=== PATIENT | female | born 1980 | race American Indian/Alaskan Native ===

== ENCOUNTER 2019-11-21 15:55 | Emergency (ER) | payer MEDICAID, OTHER ==
[~2019-11-21 15:55] MED LIST: HYDROmorphone 1 MG/ML Syringe IVPUSH ONE; Lactated Ringers 1,000 ML IV ONE; Ondansetron 4 MG/2 ML SDV IV ONE
[2019-11-21] MEDS ORDERED: Propofol 200 MG/20 ML SDV IV ONE (15:56)
[2019-11-21 15:58] VITALS: BP 114/67; PULSE 88
[2019-11-21 16:33] LABS: ANION GAP 14.1; CHLORIDE,CL 94 mmol/L (101-111); SODIUM,NA 129 mmol/L (135-145)
[2019-11-21] MEDS ORDERED: HYDROmorphone 1 MG/ML Syringe IVPUSH ONE ×4 (16:54→20:42)
[2019-11-21] MEDS ORDERED: cefTRIAXone 2 GM in Sodium Chloride 0.9% 100 ML IV ONE (17:28)
[2019-11-21] MEDS ORDERED: Lidocaine 1% 30 ML SDV ONE (17:50)
[2019-11-21] MEDS ORDERED: Lidocaine 1% 30 ML SDV INJECT ONE (17:52)
--- NOTE | 2019-11-21 18:49 | EDM.PDOC ---
<InaDmitri Lior - Last Filed: 11/22/19 08:37> ED HPI GENERAL MEDICAL PROBLEM - General Chief Complaint: Abdominal Pain Stated Complaint: UNKNOWN-AMBULANCE Time Seen by Provider: 11/21/19 16:00 - History of Present Illness INITIAL COMMENTS - FREE TEXT/NARRATIVE: Francois is a 39-year-old woman who presents by ambulance with severe abdominal pain. She states that 2 days ago, she started developing what she thought were inflamed lymph nodes in her groin by her labia. She states that 1 of these is now involving her right labia, and is very swollen. She states that today, the pain in those areas is not as bad, but now the pain is moved up into her abdomen , quite severe. She has had no appetite today. She reports to me that she still believes that she has an IUD in place, and that she has had [address] Stating that she would like this removed. She reports fevers and chills with this. Of note, Francois also reports to us medical conditions which are poorly controlled. She states that she has diabetes type 2, but does not take any kind of medications for this and does not check her blood sugar. She also reports current usage of IV drugs, including oxycodone which she injects. Abdomen Pain Score (Numeric/FACES): 10 - Related Data Allergies Allergy/AdvReac Type Severity Reaction Status Date / Time insulin detemir Allergy Hives Verified 11/21/19 15:59 [From Levemir U-100 Insulin] ketorolac [From Toradol] Allergy Hives Verified 11/21/19 15:59 piperacillin [From Zosyn] Allergy Hives Verified 11/21/19 15:59 tazobactam [From Zosyn] Allergy Hives Verified 11/21/19 15:59 vancomycin Allergy Hives Verified 11/21/19 15:59 Home Meds: Home Meds Vit No.130/Iron/Folic [ Vitamins] 1 tab PO DAILY 11/20/15 [ History] Acetaminophen/HYDROcodone [[place] 325-10 MG] 1 tab PO TID PRN #20 tablet [Rx] Docusate Sodium [Colace] 100 mg PO BID #60 cap 11/21/15 [Rx] Ferrous Sulfate [Iron] 325 mg PO BID 30 Days tablet 11/21/15 [Rx] Ibuprofen [Motrin] 800 mg PO Q8H PRN #30 tablet 11/21/15 [Rx] Past Medical History - Past Health History Medical/Surgical History: Denies Medical/Surgical History HEENT History: Reports: None Cardiovascular History: Reports: None Respiratory History: Reports: None Gastrointestinal History: Reports: None 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: , 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 Endocrine/Metabolic History: Reports: Diabetes, Type II - Infectious Disease History Infectious Disease History: Reports: MRSA - Past Surgical History Female Surgical History: Reports: Ureteral Stent Social & Family History - Family History Family Medical History: Noncontributory - Tobacco Use Smoking Status *Q: Never Smoker Second Hand Smoke Exposure: No - Caffeine Use Caffeine Use: Reports: None - Recreational Drug Use Recreational Drug Use: Yes Drug Use in Last 12 Months: Yes Recreational Drug Type: Reports: Oxycodone Recreational Drug Use Frequency: Weekly ED ROS GENERAL - Review of Systems Review Of Systems: Comprehensive ROS is negative, except as noted in HPI. ED EXAM, GI/ABD - Physical Exam Exam: See Below Text/Narrative:: General: Francois is a 39-year-old woman who is in severe pain, but in no other acute distress. She is showing no signs of respiratory distress, no tachypnea or accessory muscle use Oropharynx is clear, mucous membranes are moist Heart: Regular rate and rhythm, no murmurs Lungs: Clear to auscultation throughout Abdomen: She is diffusely tender throughout but especially around her suprapubic area I was able to get an initial exam of her genitourinary area including her labia. She does have a very enlarged right labia, as well as a large cyst just inferior to her right labia. I do palpate some lymph nodes in her inguinal area as well As Francois was having so much pain that on exam was difficult, and with the fact that she states that she would like her IUD removed, with the fact that she has clinical signs and symptoms of pelvic inflammatory disease, she consented to having her IUD removed under sedation. We will also do an exam under sedation of her labial area to see if an I&D can be performed. Anesthesia was called and consented her for moderate sedation Moderate sedation was achieved using propofol Exam was then performed: The swelling over her right labia appears to have a small area that was already draining. The cyst inferior to this had lidocaine applied, and a small incision was made using a #11 scalpel. A large amount of exudative drainage was then expressed from the wound. Speculum was inserted, and immediately noted to be a large amount of purulent drainage in the vaginal vault as well as surrounding the cervix. There appear to also be exudate coming from the cervical os itself. No IUD strings are visualized. Course - Vital Signs Last Recorded V/S: Last Vital Signs Temp 96.7 F 11/21/19 15:55 Pulse 88 11/21/19 15:55 Resp 22 H 11/21/19 15:55 BP 114/67 11/21/19 15:55 Pulse Ox 99 11/21/19 15:55 - Orders/Labs/Meds Labs: Laboratory Tests 11/21/19 11/21/19 11/21/19 Range/Units 16:01 16:07 16:07 WBC 9.7 (5.0-10.0) 10^3/uL RBC 5.06 (4.2-5.4) 10^6/uL Hgb 14.4 D (12.0-16.0) g/dL Hct 41.5 (37.0-47.0) % MCV 82.0 D (80-100) fL MCH 28.5 (27.0-34.0) pg MCHC 34.7 (33.0-35.0) g/dL Plt Count 260 D (150-450) 10^3/uL Neut % (Auto) 71.8 (42.2-75.2) % Lymph % (Auto) 22.4 (20.5-50.1) % [place] % (Auto) 5.7 (2-8) % Eos % (Auto) 0.0 L (1.0-3.0) % Baso % (Auto) 0.1 (0.0-1.0) % Sodium 129 L (135-145) mmol/L Potassium 4.1 (3.6-5.0) mmol/L Chloride 94 L (101-111) mmol/L Carbon Dioxide 25.0 (21.0-31.0) mmol/L Anion Gap 14.1 BUN 12 (7-18) mg/dL Creatinine 0.7 (0.6-1.3) mg/dL Est Cr Clr Drug Dosing 103.89 mL/min Estimated GFR (MDRD) > 60 BUN/Creatinine Ratio 17.14 Glucose 420 H* (74-105) mg/dL POC Glucose (70-105) mg/dl Lactic Acid (0.5-2.0) mmol/L Calcium 8.9 (8.4-10.2) mg/dl Total Bilirubin 1.0 (0.2-1.0) mg/dL AST 40 (10-42) IU/L ALT 36 (10-60) IU/L Alkaline Phosphatase 130 H (42-121) IU/L Total Protein 8.8 H (6.7-8.2) g/dl Albumin 3.7 (3.2-5.5) g/dl Globulin 5.1 Albumin/Globulin Ratio 0.73 HCG, Qual Negative Urine Color (YELLOW) Urine Appearance (CLEAR) Urine pH (5.0-9.0) Ur Specific [place] (1.005-1.030) Urine Protein (NEGATIVE) Urine Glucose (UA) (NEGATIVE) Urine Ketones (NEGATIVE) Urine Occult Blood (NEGATIVE) Urine Nitrite (NEGATIVE) Urine Bilirubin (NEGATIVE) Urine Urobilinogen (0.2-1.0) mg/dL Ur Leukocyte Esterase (NEGATIVE) Urine RBC /HPF Urine WBC (0-5/HPF) /HPF Ur Epithelial Cells (NOT SEEN) /HPF Urine Bacteria (0-FEW/HPF) /HPF Urine Yeast (NOT SEEN) /HPF 11/21/19 11/21/19 11/21/19 Range/Units 16:07 16:53 20:01 WBC (5.0-10.0) 10^3/uL RBC (4.2-5.4) 10^6/uL Hgb (12.0-16.0) g/dL Hct (37.0-47.0) % MCV (80-100) fL MCH (27.0-34.0) pg MCHC (33.0-35.0) g/dL Plt Count (150-450) 10^3/uL Neut % (Auto) (42.2-75.2) % Lymph % (Auto) (20.5-50.1) % [place] % (Auto) (2-8) % Eos % (Auto) (1.0-3.0) % Baso % (Auto) (0.0-1.0) % Sodium (135-145) mmol/L Potassium (3.6-5.0) mmol/L Chloride (101-111) mmol/L Carbon Dioxide (21.0-31.0) mmol/L Anion Gap BUN (7-18) mg/dL Creatinine (0.6-1.3) mg/dL Est Cr Clr Drug Dosing mL/min Estimated GFR (MDRD) BUN/Creatinine Ratio Glucose (74-105) mg/dL POC Glucose 264 H (70-105) mg/dl Lactic Acid 1.2 (0.5-2.0) mmol/L Calcium (8.4-10.2) mg/dl Total Bilirubin (0.2-1.0) mg/dL AST (10-42) IU/L ALT (10-60) IU/L Alkaline Phosphatase (42-121) IU/L Total Protein (6.7-8.2) g/dl Albumin (3.2-5.5) g/dl Globulin Albumin/Globulin Ratio HCG, Qual Urine Color Dark yellow (YELLOW) Urine Appearance Cloudy (CLEAR) Urine pH 7.0 (5.0-9.0) Ur Specific [place] 1.020 (1.005-1.030) Urine Protein 30 H (NEGATIVE) Urine Glucose (UA) 500 H (NEGATIVE) Urine Ketones Negative (NEGATIVE) Urine Occult Blood Large H (NEGATIVE) Urine Nitrite Negative (NEGATIVE) Urine Bilirubin Negative (NEGATIVE) Urine Urobilinogen 1.0 (0.2-1.0) mg/dL Ur Leukocyte Esterase Negative (NEGATIVE) Urine RBC 40-50 H /HPF Urine WBC 0-5 (0-5/HPF) /HPF Ur Epithelial Cells Many H (NOT SEEN) /HPF Urine Bacteria Rare (0-FEW/HPF) /HPF Urine Yeast Few H (NOT SEEN) /HPF 11/21/19 Range/Units 20:39 WBC (5.0-10.0) 10^3/uL RBC (4.2-5.4) 10^6/uL Hgb (12.0-16.0) g/dL Hct (37.0-47.0) % MCV (80-100) fL MCH (27.0-34.0) pg MCHC (33.0-35.0) g/dL Plt Count (150-450) 10^3/uL Neut % (Auto) (42.2-75.2) % Lymph % (Auto) (20.5-50.1) % [place] % (Auto) (2-8) % Eos % (Auto) (1.0-3.0) % Baso % (Auto) (0.0-1.0) % Sodium (135-145) mmol/L Potassium (3.6-5.0) mmol/L Chloride (101-111) mmol/L Carbon Dioxide (21.0-31.0) mmol/L Anion Gap BUN (7-18) mg/dL Creatinine (0.6-1.3) mg/dL Est Cr Clr Drug Dosing mL/min Estimated GFR (MDRD) BUN/Creatinine Ratio Glucose (74-105) mg/dL POC Glucose 253 H (70-105) mg/dl Lactic Acid (0.5-2.0) mmol/L Calcium (8.4-10.2) mg/dl Total Bilirubin (0.2-1.0) mg/dL AST (10-42) IU/L ALT (10-60) IU/L Alkaline Phosphatase (42-121) IU/L Total Protein (6.7-8.2) g/dl Albumin (3.2-5.5) g/dl Globulin Albumin/Globulin Ratio HCG, Qual Urine Color (YELLOW) Urine Appearance (CLEAR) Urine pH (5.0-9.0) Ur Specific [place] (1.005-1.030) Urine Protein (NEGATIVE) Urine Glucose (UA) (NEGATIVE) Urine Ketones (NEGATIVE) Urine Occult Blood (NEGATIVE) Urine Nitrite (NEGATIVE) Urine Bilirubin (NEGATIVE) Urine Urobilinogen (0.2-1.0) mg/dL Ur Leukocyte Esterase (NEGATIVE) Urine RBC /HPF Urine WBC (0-5/HPF) /HPF Ur Epithelial Cells (NOT SEEN) /HPF Urine Bacteria (0-FEW/HPF) /HPF Urine Yeast (NOT SEEN) /HPF Meds: Medications Discontinued Medications Generic Name Dose Route Start Last Admin Trade Name Freq PRN Reason Stop Dose Admin Hydromorphone HCl 1 mg 11/21/19 15:54 11/21/19 16:14 Dilaudid IVPUSH 11/21/19 15:55 1 mg ONETIME ONE Administration Hydromorphone HCl 0.5 mg 11/21/19 16:54 11/21/19 17:06 Dilaudid IVPUSH 11/21/19 16:55 0.5 mg ONETIME ONE Administration Hydromorphone HCl 0.5 mg 11/21/19 18:36 11/21/19 18:45 Dilaudid IVPUSH 11/21/19 18:37 0.5 mg ONETIME ONE Administration Hydromorphone HCl 1 mg 11/21/19 19:48 11/21/19 20:02 Dilaudid IVPUSH 11/21/19 19:49 1 mg ONETIME ONE Administration Hydromorphone HCl 0.5 mg 11/21/19 20:42 11/21/19 21:08 Dilaudid IVPUSH 11/21/19 20:43 0.5 mg ONETIME ONE Administration Lactated Ringer's 1,000 mls @ 999 mls/hr 11/21/19 15:54 11/21/19 17:17 Ringers, Lactated IV 11/21/19 16:54 Infused .BOLUS ONE Infusion Ceftriaxone Sodium 2 gm/ 100 mls @ 200 mls/hr 11/21/19 17:28 11/21/19 18:26 Sodium Chloride IV 11/21/19 17:57 200 mls/hr ONETIME ONE Administration Insulin Human Regular 5 unit 11/21/19 19:37 11/21/19 19:57 Humulin R IV 11/21/19 19:38 5 units ONETIME ONE Administration Iopamidol 100 ml 11/21/19 19:10 11/21/19 20:15 Isovue-300 (61%) IVPUSH 11/21/19 19:11 75 ml ONETIME ONE Administration Lidocaine HCl 30 ml 11/21/19 17:52 11/21/19 18:00 Xylocaine-Mpf 1% INJECT 11/21/19 17:53 30 ml ONETIME ONE Administration Lidocaine HCl Confirm 11/21/19 17:50 11/21/19 18:14 Xylocaine-Mpf 1% Administered 11/21/19 17:51 Not Given Dose 30 ml .ROUTE .STK-MED ONE Ondansetron HCl 4 mg 11/21/19 15:54 11/21/19 16:14 Zofran IV 11/21/19 15:55 4 mg ONETIME ONE Administration Propofol 250 mg 11/21/19 15:56 Diprivan 20 Ml IV 11/21/19 15:57 .STK-MED ONE Departure - Departure Time of Disposition: 20:55 Disposition: DC/Tfer to Acute Hospital 02 Clinical Impression: Cyst, Abdominal pain - Discharge Information *PRESCRIPTION DRUG MONITORING PROGRAM REVIEWED*: Not Applicable *COPY OF PRESCRIPTION DRUG MONITORING REPORT IN PATIENT DORYS: Not Applicable Referrals: PCP,Unknown [Ordering Only Provider] - Forms: ED Department Discharge Sepsis Event Note - Evaluation Sepsis Screening Result: Possible Sepsis Risk - Focused Exam Date Exam was Performed: 11/22/19 Time Exam was Performed: 08:37 - Problem List & Annotations (1) Pelvic inflammatory disease SNOMED Code(s): 728641427 Code(s): N73.9 - FEMALE PELVIC INFLAMMATORY DISEASE, UNSPECIFIED Status: Acute (2) Cyst SNOMED Code(s): 953445519 Code(s): WXF3773 - Status: Acute Annotation/Comment:: status post I&D - Problem List Review Problem List Initiated/Reviewed/Updated: Yes <Myla Cespedes - Last Filed: 11/22/19 22:58> ED HPI GENERAL MEDICAL PROBLEM - General Source of Information: Reports: Patient History Limitations: Reports: No Limitations Course - Radiology Interpretation Free Text/Narrative:: Dr Suad Pal accepting patient. Tx via [facility]. Departure - Departure Condition: Good Sepsis Event Note - Focused Exam Date Exam was Performed: 11/22/19 Time Exam was Performed: 22:56
[2019-11-21] MEDS ORDERED: Iopamidol 612 MG/ML 100 ML Bottle IVPUSH ONE (19:10)
[2019-11-21] MEDS ORDERED: Insulin Regular, Human 100 Units/ML 3 ML Vial IV ONE (19:37)
== END 2019-11-21 21:15 ==
LOC: DL.ED 15:55
DX: N90.7 Vulvar cyst (principal); R10.9 Unspecified abdominal pain; E11.9 Type 2 diabetes mellitus without complications; Z88.8 Allergy status to other drugs, medicaments and biological substances; Z88.6 Allergy status to analgesic agent; Z88.1 Allergy status to other antibiotic agents
CPT/HCPCS: 36415; 56405; 58301; 74018; 74177; 80053; 81001; 82962; 83605; 84703; 85025; 87070; 87077; 87186; 87210; 87491; 87591; 96361; 96365; 96375; 96376; 99152; 99153; 99285; J0696; J1170; J1815; J2001; J2405; J2704; J7050; J7120; Q9967

== ENCOUNTER 2021-01-22 00:10 | Emergency (ER) | payer MEDICAID ==
[2021-01-22 00:20] VITALS: BP 103/81; PULSE 129
[2021-01-22] MEDS ORDERED: Ondansetron 4 MG/2 ML SDV IVPUSH ONE (00:35)
[2021-01-22] MEDS ORDERED: fentaNYL 100 MCG/2 ML SDV IVPUSH ONE (00:35)
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
[2021-01-22 01:05] LABS: ANION GAP 15.7 mEq/L (7-13); CHLORIDE,CL 102 mmol/L (98-107); SODIUM,NA 140 mmol/L (136-145)
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
== END 2021-01-22 02:30 | disposition home or self-care (01) ==
LOC: DL.ED 00:10
DX: S20.211A Contusion of right front wall of thorax, initial encounter (principal); E11.9 Type 2 diabetes mellitus without complications; Z88.0 Allergy status to penicillin; Z88.6 Allergy status to analgesic agent; Z88.8 Allergy status to other drugs, medicaments and biological substances; Z72.0 Tobacco use; Y04.2XXA Assault by strike against or bumped into by another person, initial encounter
CPT/HCPCS: 36415; 71111; 80053; 80305; 80307; 81001; 82150; 83690; 84703; 85025; 87086; 96374; 96375; 99283; J2405; J3010

== ENCOUNTER 2021-09-17 16:25 | Emergency (ER) | payer MEDICAID ==
[2021-09-17] MEDS ORDERED: Ondansetron 4 MG/2 ML SDV IVPUSH ONE (16:28)
[2021-09-17 16:31] VITALS: BP 154/104; PULSE 82
[2021-09-17] MEDS ORDERED: Naloxone 2 MG/2 ML Syringe ONE (16:56)
[2021-09-17] MEDS ORDERED: Naloxone 2 MG/2 ML Syringe IVPUSH ONE (16:58)
[2021-09-17 17:08] LABS: ANION GAP 11.5 mEq/L (7-13); CHLORIDE,CL 102 mmol/L (98-107); SODIUM,NA 136 mmol/L (136-145)
--- NOTE | 2021-09-17 18:14 | EDM.PDOC ---
ED HPI GENERAL MEDICAL PROBLEM - General Chief Complaint: Drug or Alcohol Abuse Stated Complaint: [facility] Time Seen by Provider: 09/17/21 16:40 Source of Information: Reports: Patient, EMS, RN, RN Notes Reviewed History Limitations: Reports: Altered Mental Status - History of Present Illness INITIAL COMMENTS - FREE TEXT/NARRATIVE: Jana is a 41 y/o female who presents to the ED via [facility] due to unintentional overdose of a recreational drug. Per EMS report, they received a call to a home where multiple individuals were inhaling and injecting various drugs. Upon their arrival the patient was noted to be breathing with a pulse, no rescue breaths were necessary as patient was breathing appropriately on her own. No Narcan was administered on scene or en route. Upon arrival to this facility the patient is lethargic with a GCS of 14; she is able to state his name and move all extremities to command. Oxygen saturation in the low 90s with RR mid teens. She denies chest pain or shortness of breath, however states she feels nauseas. The patient reports she inhaled a Percocet; she denies injection or smoking. - Related Data Allergies Allergy/AdvReac Type Severity Reaction Status Date / Time insulin detemir Allergy Hives Verified 11/21/19 15:59 [From Levemir U-100 Insulin] ketorolac [From Toradol] Allergy Hives Verified 11/21/19 15:59 piperacillin [From Zosyn] Allergy Hives Verified 11/21/19 15:59 tazobactam [From Zosyn] Allergy Hives Verified 11/21/19 15:59 vancomycin Allergy Hives Verified 11/21/19 15:59 Home Meds: Home Meds Vit No.130/Iron/Folic [ Vitamins] 1 tab PO DAILY 11/20/15 [History] Acetaminophen/HYDROcodone [[place] 325-10 MG] 1 tab PO TID PRN #20 tablet 11/21/15 [Rx] Docusate Sodium [Colace] 100 mg PO BID #60 cap 11/21/15 [Rx] Ferrous Sulfate [Iron] 325 mg PO BID 30 Days tablet 11/21/15 [Rx] Ibuprofen [Motrin] 800 mg PO Q8H PRN #30 tablet 11/21/15 [Rx] Past Medical History - Past Health History Medical/Surgical History: Denies Medical/Surgical History HEENT History: Reports: None Cardiovascular History: Reports: None Respiratory History: Reports: None Gastrointestinal History: Reports: None 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: , 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 Endocrine/Metabolic History: Reports: None, Diabetes, Type II - Infectious Disease History Infectious Disease History: Reports: MRSA - Past Surgical History Female Surgical History: Reports: Ureteral Stent Social & Family History - Family History Family Medical History: No Pertinent Family History - Tobacco Use Tobacco Use Status *Q: Current Every Day Tobacco User Years of Tobacco use: 30 Packs/Tins Daily: 0.5 - Caffeine Use Caffeine Use: Reports: None - Recreational Drug Use Recreational Drug Type: Reports: Fentanyl ED ROS GENERAL - Review of Systems Review Of Systems: Comprehensive ROS is negative, except as noted in HPI. - Physical Exam Exam: See Below Exam Limited By: Altered Mental Status General Appearance: Alert, No Apparent Distress Eye Exam: Bilateral Eye: PERRL (4mm) Ears: Normal External Exam Nose: Normal Inspection Throat/Mouth: Normal Inspection, Normal Oropharynx, Normal Voice, No Airway Compromise Head Exam: Atraumatic, Normocephalic Neck: Normal Inspection Respiratory/Chest: Lungs Clear, Normal Breath Sounds, Chest Non-Tender, Respiratory Distress (Bradypnea). No: Crackles, Rales, Rhonchi, Wheezing, Stridor Cardiovascular: Regular Rate, Rhythm, No Gallop, No Murmur, No Rub, Tachycardia GI/Abdominal: Normal Bowel Sounds, Soft, Non-Tender, No Distention, No Abnormal Bruit, No Mass, Pelvis Stable (Female) Exam: Deferred Rectal (Female) Exam: Deferred Neuro Exam (Abbreviated): Slow to Respond. No: Memory Loss Remote Events, Memory Loss Recent Events Back Exam: Normal Inspection Extremities: Normal Inspection, Normal Range of Motion, Normal Capillary Refill Psychiatric: Flat Affect Skin Exam: Warm, Dry, Intact, Normal Color, No Rash, Pallor. No: Cyanosis, Ecchymosis, Erythema, Jaundice, Mottled, Petechiae Course - Vital Signs Last Recorded V/S: Last Vital Signs Temp 96.8 F L 09/17/21 16:30 Pulse 82 09/17/21 16:30 Resp 10 L 09/17/21 16:30 BP 154/104 H 09/17/21 16:30 Pulse Ox 95 09/17/21 16:30 - Orders/Labs/Meds Labs: Laboratory Tests 09/17/21 09/17/21 Range/Units 16:28 16:28 WBC 6.6 (5.0-10.0) 10^3/uL RBC 4.43 (4.2-5.4) 10^6/uL Hgb 13.9 (12.0-16.0) g/dL Hct 42.2 (37.0-47.0) % MCV 95.3 D (80-100) fL MCH 31.4 (27.0-34.0) pg MCHC 32.9 L (33.0-35.0) g/dL Plt Count 147 L D (150-450) 10^3/uL Neut % (Auto) 60.7 (42.2-75.2) % Lymph % (Auto) 27.9 (20.5-50.1) % [place] % (Auto) 9.1 H (2-8) % Eos % (Auto) 2.0 (1.0-3.0) % Baso % (Auto) 0.3 (0.0-1.0) % Sodium 136 (136-145) mmol/L Potassium 3.5 (3.5-5.1) mmol/L Chloride 102 (98-107) mmol/L Carbon Dioxide 26 (21-32) mmol/L Anion Gap 11.5 (7-13) mEq/L BUN 12 (7-18) mg/dL Creatinine 0.73 (0.55-1.02) mg/dL Est Cr Clr Drug Dosing TNP Estimated GFR (MDRD) > 60 BUN/Creatinine Ratio 16.4 (No establ ref range) Glucose 173 H (70-99) mg/dL Calcium 8.2 L (8.5-10.1) mg/dL Magnesium 2.1 (1.8-2.4) mg/dL Total Bilirubin 0.3 (0.2-1.0) mg/dL AST 27 (15-37) U/L ALT 19 (14-59) U/L Alkaline Phosphatase 104 (46-116) U/L C-Reactive Protein < 0.2 (0.0-0.9) mg/dL Total Protein 8.7 H (6.4-8.2) g/dL Albumin 3.4 (3.4-5.0) g/dL Globulin 5.3 Albumin/Globulin Ratio 0.6 Ethyl Alcohol < 3 (0) mg/dL Meds: Medications Discontinued Medications Generic Name Dose Route Start Last Admin Trade Name Arianne PRSteve Reason Stop Dose Admin Naloxone HCl Confirm 09/17/21 16:56 09/17/21 17:00 Naloxone 2 Mg/2 Ml Syringe Administered 09/17/21 16:57 Not Given Dose 2 mg .ROUTE .STK-MED ONE Naloxone HCl 1 mg 09/17/21 16:58 09/17/21 16:59 Naloxone 2 Mg/2 Ml Syringe IVPUSH 09/17/21 16:59 1 mg ONETIME ONE Administration Ondansetron HCl 4 mg 09/17/21 16:28 09/17/21 16:57 Ondansetron 4 Mg/2 Ml Sdv IVPUSH 09/17/21 16:29 4 mg ONETIME ONE Administration - Re-Assessments/Exams Free Text/Narrative Re-Assessment/Exam: 09/17/21 Narcan 1mg IVP administered. Zofran 4mg IVP administered. Patient alert and oriented to all spheres. VSS. Findings of examination and lab work reviewed with patient. Supportive cares for narcotic overdose discussed. Patient instructed to follow up with primary care provider regarding todays visit and to refrain from recreational drug use. Red flag signs and symptoms which would warrant immediate reevaluation reviewed. Patient verbalized understanding and agreement with the plan of care. Departure - Departure Time of Disposition: 19:04 Disposition: Home, Self-Care 01 Condition: Good Clinical Impression: Opiate or related narcotic overdose Qualifiers: Encounter type: initial encounter Injury intent: accidental or unintentional Qualified Code(s): T40.601A - Poisoning by unspecified narcotics, accidental (unintentional), initial encounter - Discharge Information *PRESCRIPTION DRUG MONITORING PROGRAM REVIEWED*: Not Applicable *COPY OF PRESCRIPTION DRUG MONITORING REPORT IN PATIENT DORYS: Not Applicable Instructions: Opioid Overdose Forms: ED Department Discharge Additional Instructions: 1.) Do not use narcotic drugs. 2.) Drink plenty of water to stay hydrated while you recover from your acute narcotic overdose. 3.) Follow up with your primary care provider in 3-5 days regarding today's visit. Sepsis Event Note (ED) - Evaluation Sepsis Screening Result: No Definite Risk
== END 2021-09-17 19:07 | disposition home or self-care (01) ==
LOC: DL.ED 16:25
DX: T40.601A Poisoning by unspecified narcotics, accidental (unintentional), initial encounter (principal); E11.9 Type 2 diabetes mellitus without complications; Z88.0 Allergy status to penicillin; Z88.1 Allergy status to other antibiotic agents; Z88.8 Allergy status to other drugs, medicaments and biological substances; Z88.6 Allergy status to analgesic agent; Z72.0 Tobacco use
CPT/HCPCS: 36415; 80053; 80307; 83735; 85025; 86140; 96374; 96375; 99284; J2310; J2405

== ENCOUNTER 2021-09-20 13:47 | Emergency (ER) | payer MEDICAID ==
[2021-09-20 14:45] VITALS: BP 102/78; PULSE 116
--- NOTE | 2021-09-20 16:22 | EDM.PDOC ---
ED HPI GENERAL MEDICAL PROBLEM - General Chief Complaint: Fever Stated Complaint: POSSIBLE COVID Time Seen by Provider: 09/20/21 16:18 Source of Information: Reports: Patient, RN, RN Notes Reviewed History Limitations: Reports: No Limitations - History of Present Illness INITIAL COMMENTS - FREE TEXT/NARRATIVE: Jana is a 41 y/o female who presents to the ED via personal vehicle with complaints of subjective fever, cough, congestion, sore throat, and muscle aches. The patient reports her symptoms two days ago and have progressively worsened. Additionally, she notes fatigue and transient shortness of breath. She notes she was a patient in this emergency department two days ago following a narcotic overdose at which time she feels she contracted COVID. The patient denies recent illness, shaking chills, vision changes, dizziness, chest pain/pressure, palpitations, dyspepsia, nausea, vomiting, abdominal pain, or diarrhea. She has taken no medications or performed supportive cares for her symptoms. The patient states she has not used recreational drugs in 48 hours. She denies history of a COVID-19 infection; she is not vaccinated for COVID or Influenza. Generalized Pain Score (Numeric/FACES): 10 - Related Data Allergies Allergy/AdvReac Type Severity Reaction Status Date / Time insulin detemir Allergy Hives Verified 09/23/21 12:11 [From Levemir U-100 Insulin] ketorolac [From Toradol] Allergy Hives Verified 09/23/21 12:11 piperacillin [From Zosyn] Allergy Hives Verified 09/23/21 12:11 tazobactam [From Zosyn] Allergy Hives Verified 09/23/21 12:11 vancomycin Allergy Hives Verified 09/23/21 12:11 Home Meds: Home Meds Vit No.130/Iron/Folic [ Vitamins] 1 tab PO DAILY 11/20/15 [History] Acetaminophen/HYDROcodone [[place] 325-10 MG] 1 tab PO TID PRN #20 tablet 11/21/15 [Rx] Docusate Sodium [Colace] 100 mg PO BID #60 cap 11/21/15 [Rx] Ferrous Sulfate [Iron] 325 mg PO BID 30 Days tablet 11/21/15 [Rx] Ibuprofen [Motrin] 800 mg PO Q8H PRN #30 tablet 11/21/15 [Rx] Past Medical History - Past Health History Medical/Surgical History: Denies Medical/Surgical History HEENT History: Reports: None Cardiovascular History: Reports: None Respiratory History: Reports: None Gastrointestinal History: Reports: None 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: , 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 Endocrine/Metabolic History: Reports: None, Diabetes, Type II - Infectious Disease History Infectious Disease History: Reports: MRSA - Past Surgical History Female Surgical History: Reports: Ureteral Stent Social & Family History - Family History Family Medical History: No Pertinent Family History - Tobacco Use Tobacco Use Status *Q: Current Every Day Tobacco User Years of Tobacco use: 20 Packs/Tins Daily: 1 - Caffeine Use Caffeine Use: Reports: Soda - Recreational Drug Use Recreational Drug Type: Reports: Amphetamines (Speed), Fentanyl, Methamphetamine, Oxycodone ED ROS GENERAL - Review of Systems Review Of Systems: Comprehensive ROS is negative, except as noted in HPI. ED EXAM, GENERAL - Physical Exam Exam: See Below Exam Limited By: No Limitations General Appearance: Alert, No Apparent Distress, Anxious, Other (Tearful) Eye Exam: Bilateral Eye: EOMI, Normal Inspection, PERRL (3mm) Ears: Normal External Exam, Hearing Grossly Normal Nose: Normal Inspection Throat/Mouth: Normal Inspection, Normal Oropharynx, Normal Voice, No Airway Compromise Head: Atraumatic, Normocephalic Neck: Normal Inspection, Supple, Non-Tender, Full Range of Motion. No: Lymphadenopathy (L), Lymphadenopathy (R) Respiratory/Chest: No Respiratory Distress, Lungs Clear, Normal Breath Sounds, No Accessory Muscle Use, Chest Non-Tender. No: Crackles, Rales, Rhonchi, Wheezing, Stridor Cardiovascular: Normal Peripheral Pulses, Regular Rate, Rhythm, No Edema, No Gallop, No JVD, No Murmur, No Rub, Tachycardia Peripheral Pulses: 2+: Radial (L), Radial (R) GI/Abdominal: Normal Bowel Sounds, Soft, Non-Tender, No Distention, No Abnormal Bruit, No Mass, Pelvis Stable (Female) Exam: Deferred Rectal (Female) Exam: Deferred Back Exam: Normal Inspection, Full Range of Motion Extremities: Normal Inspection, Normal Range of Motion, Non-Tender, No Pedal Edema, Normal Capillary Refill Neurological: Alert, Oriented, CN II-XII Intact, Normal Cognition, Normal Gait, No Motor/Sensory Deficits Psychiatric: Anxious, Tearful Skin Exam: Warm, Dry, Intact, Normal Color, No Rash. No: Cyanosis, Jaundice, Mottled, Pallor Lymphatic: No Adenopathy Course - Vital Signs Last Recorded V/S: Last Vital Signs Temp 97.3 F 09/20/21 14:41 Pulse 116 H 09/20/21 14:41 Resp 16 09/20/21 14:41 BP 102/78 09/20/21 14:41 Pulse Ox 100 09/20/21 14:41 - Orders/Labs/Meds Labs: Laboratory Tests 09/20/21 Range/Units 14:31 SARS-CoV-2 RNA (ELI) Positive H (NEGATIVE) - Re-Assessments/Exams Free Text/Narrative Re-Assessment/Exam: 09/21/21 COVID test sent. Findings of examination and lab work reviewed with patient. Will treat SOB with albuterol MDI. Supportive cares and quarantine discussed. Red flag signs and symptoms which would warrant immediate reevaluation reviewed. Patient verbalized understanding and agreement with the plan of care. Departure - Departure Time of Disposition: 16:39 Disposition: Home, Self-Care 01 Condition: Good Clinical Impression: COVID-19 - Discharge Information *PRESCRIPTION DRUG MONITORING PROGRAM REVIEWED*: Not Applicable *COPY OF PRESCRIPTION DRUG MONITORING REPORT IN PATIENT DORYS: Not Applicable Instructions: COVID-19 Frequently Asked Questions, 10 Things You Can Do to Manage Your COVID-19 Symptoms at Home - [facility] (05/08/2021), COVID-19: What to Do If You Are Sick- [facility] (01/07/2021) [facility] - Forms: ED Department Discharge Additional Instructions: Rx: albuterol MDI (#1) 1.) Follow [place] Health Department guidelines regarding quarantine; 10 days from onset of symptoms. 2.) You may take ibuprofen (Advil/Motrin) 400mg every six hours, for muscle aches and fever. You may also take acetaminophen (Tylenol) 650mg every six hours, for muscle aches and fever. You may stagger these medications so you are taking a dose of either every three hours. 3.) Drink frequent sips of water to stay dehydrated. 4.) Eat small, snack-like meals. Eat a bland, easily digestible diet. Avoid greasy, high-fat, spicy foods. Sepsis Event Note (ED) - Evaluation Sepsis Screening Result: No Definite Risk
== END 2021-09-20 16:45 | disposition home or self-care (01) ==
LOC: DL.ED 13:47
DX: U07.1 COVID-19 (principal); E11.9 Type 2 diabetes mellitus without complications; Z72.0 Tobacco use; Z79.4 Long term (current) use of insulin; Z88.0 Allergy status to penicillin; Z88.6 Allergy status to analgesic agent; Z88.1 Allergy status to other antibiotic agents
CPT/HCPCS: 99283; U0002

== ENCOUNTER 2021-09-23 11:46 | Emergency (ER) | payer MEDICAID ==
[2021-09-23 12:11] VITALS: BP 95/71; PULSE 130
[2021-09-23] MEDS ORDERED: Sodium Chloride 0.9% 10 ML Syringe FLUSH PRN (12:29)
[2021-09-23] MEDS ORDERED: Acetaminophen 500 MG Tab PO ONE (12:32)
[2021-09-23] MEDS ORDERED: Sodium Chloride 0.9% 1,000 ML IV ONE ×2 (12:32→14:01)
[2021-09-23] MEDS ORDERED: Ondansetron 4 MG/2 ML SDV IVPUSH ONE (12:33)
--- NOTE | 2021-09-23 12:38 | EDM.PDOC ---
ED HPI GENERAL MEDICAL PROBLEM - General Chief Complaint: Fever Stated Complaint: AMBULANCE Time Seen by Provider: 09/23/21 12:33 Source of Information: Reports: Patient History Limitations: Reports: No Limitations - History of Present Illness INITIAL COMMENTS - FREE TEXT/NARRATIVE: 41 y/o F brought in by EMS c/o cough, fever, body aches, [place] since Tuesday. Diagnosed with COVID Tuesday. Symptoms have worsened since her diagnosis. She has tried ibuprofen with no relief. She has not been able to keep anything down since yesterday. Hx if diabetes, drugs abuse. She denies hidalgo, vision prob, neck pn, db, abd pn, swelling, , etoh. 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 generalized Pain Score (Numeric/FACES): 7 - Related Data Allergies Allergy/AdvReac Type Severity Reaction Status Date / Time insulin detemir Allergy Hives Verified 09/23/21 12:11 [From Levemir U-100 Insulin] ketorolac [From Toradol] Allergy Hives Verified 09/23/21 12:11 piperacillin [From Zosyn] Allergy Hives Verified 09/23/21 12:11 tazobactam [From Zosyn] Allergy Hives Verified 09/23/21 12:11 vancomycin Allergy Hives Verified 09/23/21 12:11 Home Meds: Home Meds Vit No.130/Iron/Folic [ Vitamins] 1 tab PO DAILY 11/20/15 [History] Acetaminophen/HYDROcodone [[place] 325-10 MG] 1 tab PO TID PRN #20 tablet 11/21/15 [Rx] Docusate Sodium [Colace] 100 mg PO BID #60 cap 11/21/15 [Rx] Ferrous Sulfate [Iron] 325 mg PO BID 30 Days tablet 11/21/15 [Rx] Ibuprofen [Motrin] 800 mg PO Q8H PRN #30 tablet 11/21/15 [Rx] Past Medical History - Past Health History Medical/Surgical History: Denies Medical/Surgical History HEENT History: Reports: None Cardiovascular History: Reports: None Respiratory History: Reports: None Gastrointestinal History: Reports: None Genitourinary History: Reports: None 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: , 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 Musculoskeletal History: Reports: None Neurological History: Reports: None Psychiatric History: Reports: Addiction Endocrine/Metabolic History: Reports: None, Diabetes, Type II Hematologic History: Reports: None Immunologic History: Reports: None Oncologic (Cancer) History: Reports: None Dermatologic History: Reports: None - Infectious Disease History Infectious Disease History: Reports: MRSA, Novel Coronavirus - Past Surgical History Female Surgical History: Reports: Ureteral Stent Social & Family History - Family History Family Medical History: No Pertinent Family History - Tobacco Use Tobacco Use Status *Q: Never Tobacco User - Caffeine Use Caffeine Use: Reports: None - Recreational Drug Use Recreational Drug Use: Yes Recreational Drug Type: Reports: Fentanyl ED ROS GENERAL - Review of Systems Review Of Systems: Comprehensive ROS is negative, except as noted in HPI. ED EXAM, GENERAL - Physical Exam Exam: See Below Exam Limited By: No Limitations General Appearance: Alert Eye Exam: Bilateral Eye: PERRL Ears: Normal External Exam, Normal Canal, Hearing Grossly Normal, Normal TMs Nose: Normal Inspection, Normal Mucosa, No Blood Throat/Mouth: Normal Inspection, Normal Lips, Normal Teeth, Normal Gums, Normal Oropharynx, Normal Voice, No Airway Compromise Head: Atraumatic, Normocephalic Neck: Normal Inspection, Supple, Non-Tender, Full Range of Motion Respiratory/Chest: No Respiratory Distress, Lungs Clear, Normal Breath Sounds Cardiovascular: Normal Peripheral Pulses, Regular Rate, Rhythm Peripheral Pulses: 2+: Radial (L), Radial (R) GI/Abdominal: Soft, Non-Tender (Female) Exam: Deferred Rectal (Female) Exam: Deferred Back Exam: Normal Inspection, Full Range of Motion Extremities: Normal Inspection, Normal Range of Motion, Non-Tender, Normal Capillary Refill, No Pedal Edema Neurological: Alert Psychiatric: Normal Affect, Normal Mood Skin Exam: Warm, Dry, Intact Course - Vital Signs Last Recorded V/S: Last Vital Signs Temp 100.7 F H 09/23/21 13:04 Pulse 130 H 09/23/21 12:04 Resp 20 09/23/21 12:04 BP 95/71 09/23/21 12:04 Pulse Ox 97 09/23/21 12:04 - Orders/Labs/Meds Orders: Active Orders 24 hr Category Date Time Status Peripheral IV Care [RC] . DIRECTED Care 09/23/21 12:31 Active CULTURE BLOOD [BC] Stat Lab 09/23/21 12:55 Results CULTURE BLOOD [BC] Stat Lab 09/23/21 13:01 Received Sodium Chloride 0.9% [Saline Flush] Med 12/01/21 12:29 Active 10 ml FLUSH ASDIRECTED PRN Blood Culture x2 Reflex Set [OM.PC] Stat Oth 09/23/21 12:30 Ordered Peripheral IV Insertion Adult [OM.PC] Routine Oth 09/23/21 12:30 Ordered Medication Orders Sodium Chloride (Sodium Chloride 0.9% 10 Ml Syringe) 10 ml FLUSH ASDIRECTED PRN PRN Reason: Keep Vein Open Last Admin: 09/23/21 13:04 Dose: 10 ml Documented by: JERAD Labs: Laboratory Tests 09/23/21 09/23/21 09/23/21 Range/Units 12:49 12:49 12:49 WBC (5.0-10.0) 10^3/uL RBC (4.2-5.4) 10^6/uL Hgb (12.0-16.0) g/dL Hct (37.0-47.0) % MCV (80-100) fL MCH (27.0-34.0) pg MCHC (33.0-35.0) g/dL Plt Count (150-450) 10^3/uL Neut % (Auto) (42.2-75.2) % Lymph % (Auto) (20.5-50.1) % Cross % (Auto) (2-8) % Eos % (Auto) (1.0-3.0) % Baso % (Auto) (0.0-1.0) % Sodium (136-145) mmol/L Potassium (3.5-5.1) mmol/L Chloride (98-107) mmol/L Carbon Dioxide (21-32) mmol/L Anion Gap (7-13) mEq/L BUN (7-18) mg/dL Creatinine (0.55-1.02) mg/dL Est Cr Clr Drug Dosing mL/min Estimated GFR (MDRD) BUN/Creatinine Ratio (No establ ref range) Glucose (70-99) mg/dL Lactic Acid (0.4-2.0) mmol/L Calcium (8.5-10.1) mg/dL Phosphorus (2.6-4.7) mg/dL Total Bilirubin (0.2-1.0) mg/dL AST (15-37) U/L ALT (14-59) U/L Alkaline Phosphatase (46-116) U/L C-Reactive Protein (0.0-0.9) mg/dL Total Protein (6.4-8.2) g/dL Albumin (3.4-5.0) g/dL Globulin Albumin/Globulin Ratio Urine Color Yellow (YELLOW) Urine Appearance Cloudy (CLEAR) Urine pH 8.5 (5.0-9.0) Ur Specific [place] 1.025 (1.005-1.030) Urine Protein 100 H (NEGATIVE) Urine Glucose (UA) Negative (NEGATIVE) Urine Ketones Negative (NEGATIVE) Urine Occult Blood Large H (NEGATIVE) Urine Nitrite Negative (NEGATIVE) Urine Bilirubin Negative (NEGATIVE) Urine Urobilinogen 1.0 (0.2-1.0) mg/dL Ur Leukocyte Esterase Negative (NEGATIVE) Urine RBC >100 H (0-5) /HPF Urine WBC 10-20 H (0-5/HPF) /HPF Ur Epithelial Cells Rare (NOT SEEN) /HPF Urine Bacteria Occasional (0-FEW/HPF) /HPF Urine HCG, Qual Negative Urine Opiates Screen Negative (NEGATIVE) Ur Oxycodone Screen Negative (NEGATIVE) Urine Methadone Screen Negative (NEGATIVE) Ur Barbiturates Screen Negative (NEGATIVE) U Tricyclic Antidepress Negative (NEGATIVE) Ur Phencyclidine Scrn Negative (NEGATIVE) Ur Amphetamine Screen Negative (NEGATIVE) U Methamphetamines Scrn Negative (NEGATIVE) Urine MDMA Screen Negative (NEGATIVE) U Benzodiazepines Scrn Negative (NEGATIVE) Urine Cocaine Screen Negative (NEGATIVE) U Marijuana (THC) Screen Positive H (NEGATIVE) Ethyl Alcohol (0) mg/dL 09/23/21 09/23/21 09/23/21 Range/Units 13:01 13:01 13:01 WBC 5.5 (5.0-10.0) 10^3/uL RBC 4.85 (4.2-5.4) 10^6/uL Hgb 15.1 (12.0-16.0) g/dL Hct 42.8 (37.0-47.0) % MCV 88.2 D (80-100) fL MCH 31.1 (27.0-34.0) pg MCHC 35.3 H (33.0-35.0) g/dL Plt Count 188 (150-450) 10^3/uL Neut % (Auto) 61.6 (42.2-75.2) % Lymph % (Auto) 29.1 (20.5-50.1) % Cross % (Auto) 9.3 H (2-8) % Eos % (Auto) 0.0 L (1.0-3.0) % Baso % (Auto) 0.0 (0.0-1.0) % Sodium 128 L (136-145) mmol/L Potassium 4.0 (3.5-5.1) mmol/L Chloride 90 L D (98-107) mmol/L Carbon Dioxide 29 (21-32) mmol/L Anion Gap 13.0 (7-13) mEq/L BUN 6 L (7-18) mg/dL Creatinine 0.85 (0.55-1.02) mg/dL Est Cr Clr Drug Dosing 81.93 mL/min Estimated GFR (MDRD) > 60 BUN/Creatinine Ratio 7.1 (No establ ref range) Glucose 145 H (70-99) mg/dL Lactic Acid 1.1 (0.4-2.0) mmol/L Calcium 8.3 L (8.5-10.1) mg/dL Phosphorus 2.7 (2.6-4.7) mg/dL Total Bilirubin 0.5 (0.2-1.0) mg/dL AST 16 (15-37) U/L ALT 11 L (14-59) U/L Alkaline Phosphatase 91 (46-116) U/L C-Reactive Protein 9.2 H (0.0-0.9) mg/dL Total Protein 8.6 H (6.4-8.2) g/dL Albumin 3.0 L (3.4-5.0) g/dL Globulin 5.6 Albumin/Globulin Ratio 0.54 Urine Color (YELLOW) Urine Appearance (CLEAR) Urine pH (5.0-9.0) Ur Specific [place] (1.005-1.030) Urine Protein (NEGATIVE) Urine Glucose (UA) (NEGATIVE) Urine Ketones (NEGATIVE) Urine Occult Blood (NEGATIVE) Urine Nitrite (NEGATIVE) Urine Bilirubin (NEGATIVE) Urine Urobilinogen (0.2-1.0) mg/dL Ur Leukocyte Esterase (NEGATIVE) Urine RBC (0-5) /HPF Urine WBC (0-5/HPF) /HPF Ur Epithelial Cells (NOT SEEN) /HPF Urine Bacteria (0-FEW/HPF) /HPF Urine HCG, Qual Urine Opiates Screen (NEGATIVE) Ur Oxycodone Screen (NEGATIVE) Urine Methadone Screen (NEGATIVE) Ur Barbiturates Screen (NEGATIVE) U Tricyclic Antidepress (NEGATIVE) Ur Phencyclidine Scrn (NEGATIVE) Ur Amphetamine Screen (NEGATIVE) U Methamphetamines Scrn (NEGATIVE) Urine MDMA Screen (NEGATIVE) U Benzodiazepines Scrn (NEGATIVE) Urine Cocaine Screen (NEGATIVE) U Marijuana (THC) Screen (NEGATIVE) Ethyl Alcohol < 3 (0) mg/dL Meds: Medications Generic Name Dose Route Start Last Admin Trade Name Freq PRN Reason Stop Dose Admin Sodium Chloride 10 ml 09/23/21 12:29 09/23/21 13:04 Sodium Chloride 0.9% 10 Ml Syringe FLUSH 10 ml ASDIRECTED PRN Administration Keep Vein Open Discontinued Medications Generic Name Dose Route Start Last Admin Trade Name Freq PRN Reason Stop Dose Admin Acetaminophen 1,000 mg 09/23/21 12:32 09/23/21 13:04 Acetaminophen 500 Mg Tab PO 09/23/21 12:33 1,000 mg ONETIME ONE Administration Sodium Chloride 1,000 mls @ 999 mls/hr 09/23/21 12:32 09/23/21 13:04 Normal Saline IV 09/23/21 13:32 999 mls/hr .BOLUS ONE Administration Sodium Chloride 1,000 mls @ 999 mls/hr 09/23/21 14:01 Normal Saline IV 09/23/21 15:01 .BOLUS ONE Ondansetron HCl 4 mg 09/23/21 12:33 09/23/21 13:04 Ondansetron 4 Mg/2 Ml Sdv IVPUSH 09/23/21 12:34 4 mg ONETIME ONE Administration - Re-Assessments/Exams Free Text/Narrative Re-Assessment/Exam: 09/23/21 15:11 The pt feels much better after fluid and meds and feels safe to go home. I will discharge her with an RX for zofran to hel her with her nausea through her COVID. Departure - Departure Time of Disposition: 15:11 Disposition: Home, Self-Care 01 Condition: Fair Clinical Impression: COVID-19 - Discharge Information *PRESCRIPTION DRUG MONITORING PROGRAM REVIEWED*: Not Applicable *COPY OF PRESCRIPTION DRUG MONITORING REPORT IN PATIENT DORYS: Not Applicable Instructions: 10 Things You Can Do to Manage Your COVID-19 Symptoms at Home - [facility] (05/08/2021) Forms: ED Department Discharge Additional Instructions: RX: Zofran Use tylenol and Ibuprofen for pain and fever control as needed. Drink plenty of fluids to maintain hydration. Your sodium level in your blood was a little low so drink things like gatorade and powerade to keep your electrolytes up. If any new symptoms or concerns develop contact your primary care facility or return to the ER. Sepsis Event Note (ED) - Evaluation Sepsis Screening Result: Possible Sepsis Risk - Focused Exam Vital Signs: Vital Signs Temp Temp Pulse Resp BP Pulse Ox 09/23/21 13:04 100.7 F H 09/23/21 12:04 101.9 F H 130 H 20 95/71 97 - My Orders Last 24 Hours: My Active Orders 09/23/21 12:29 Sodium Chloride 0.9% [Saline Flush] 10 ml FLUSH ASDIRECTED PRN 09/23/21 12:30 Blood Culture x2 Reflex Set [OM.PC] Stat Peripheral IV Insertion Adult [OM.PC] Routine 09/23/21 12:31 Peripheral IV Care [RC] . DIRECTED 09/23/21 12:55 CULTURE BLOOD [BC] Stat 09/23/21 13:01 CULTURE BLOOD [BC] Stat - Assessment/Plan Last 24 Hours: My Active Orders 09/23/21 12:29 Sodium Chloride 0.9% [Saline Flush] 10 ml FLUSH ASDIRECTED PRN 09/23/21 12:30 Blood Culture x2 Reflex Set [OM.PC] Stat Peripheral IV Insertion Adult [OM.PC] Routine 09/23/21 12:31 Peripheral IV Care [RC] . DIRECTED 09/23/21 12:55 CULTURE BLOOD [BC] Stat 09/23/21 13:01 CULTURE BLOOD [BC] Stat
[2021-09-23 13:00] LABS: AMPHETAMINES,URINE NEGATIVE (NEGATIVE); BARBITURATES,URINE NEGATIVE (NEGATIVE); BENZODIAZEPINE,URINE NEGATIVE (NEGATIVE); MDMA (ECSTASY), URINE NEGATIVE (NEGATIVE); METHADONE,URINE NEGATIVE (NEGATIVE); METHAMPHETAMINES,URINE NEGATIVE (NEGATIVE); OPIATES,URINE NEGATIVE (NEGATIVE); OXYCODONE,URINE NEGATIVE (NEGATIVE); PHENCYCLIDINE,URINE NEGATIVE (NEGATIVE); TCA,URINE NEGATIVE (NEGATIVE)
[2021-09-23 13:31] LABS: CHLORIDE,CL 90 mmol/L (98-107); SODIUM,NA 128 mmol/L (136-145)
--- NOTE | 2021-09-23 13:40 | CR ---
EXAMINATION: Chest 1V Frontal SEX: Female AGE: 41 years CLINICAL HISTORY: 41-year-old female with R lower rib pain. Cough. Covid +. Comparison CXR January 22, 2021. INTERPRETATION: Abnormal. 1. New right parahilar nodular density and patchy left infrahilar consolidation since comparison CXR January 2021. (Generally poor inspiratory effort) Atelectasis? Pneumonitis? 2. Normal cardiac silhouette. No pulmonary vascular congestion, cephalization of flow or alveolar edema. 3. No dependent pleural fluid accumulation. 4. No other lung mass or focal lobar consolidation. 5. No pneumothorax or pneumomediastinum. Midline tracheal bronchial airway unremarkable.
== END 2021-09-23 15:42 | disposition home or self-care (01) ==
LOC: DL.ED 11:46
DX: U07.1 COVID-19 (principal); E11.9 Type 2 diabetes mellitus without complications; Z88.7 Allergy status to serum and vaccine; Z88.5 Allergy status to narcotic agent; Z88.0 Allergy status to penicillin; Z88.1 Allergy status to other antibiotic agents; Z79.899 Other long term (current) drug therapy
CPT/HCPCS: 36415; 71045; 80053; 80305; 80307; 81001; 81025; 83605; 84100; 85025; 86140; 87040; 96374; 99284; A9270; J2405; J7030

== ENCOUNTER 2021-10-13 19:18 | Inpatient (IN) | payer MEDICAID ==
[2021-10-13] MEDS ORDERED: Sodium Chloride 0.9% 1,000 ML IV ONE (19:23)
[2021-10-13] MEDS ORDERED: Ondansetron 4 MG/2 ML SDV IVPUSH ONE (20:03)
[2021-10-13 20:04] LABS: AMPHETAMINES,URINE NEGATIVE (NEGATIVE); BARBITURATES,URINE NEGATIVE (NEGATIVE); BENZODIAZEPINE,URINE NEGATIVE (NEGATIVE); MDMA (ECSTASY), URINE NEGATIVE (NEGATIVE); METHADONE,URINE NEGATIVE (NEGATIVE); METHAMPHETAMINES,URINE NEGATIVE (NEGATIVE); OPIATES,URINE NEGATIVE (NEGATIVE); OXYCODONE,URINE NEGATIVE (NEGATIVE); PHENCYCLIDINE,URINE NEGATIVE (NEGATIVE); TCA,URINE NEGATIVE (NEGATIVE)
[2021-10-13] MEDS ORDERED: fentaNYL 100 MCG/2 ML SDV IVPUSH ONE (20:05)
[2021-10-13 20:22] LABS: ANION GAP 17.4 mEq/L (7-13)
[2021-10-13] MEDS ORDERED: 50% Dextrose in Water 50 ML Syringe IVPUSH PRN (21:14)
[2021-10-13] MEDS ORDERED: Glucagon,Human Recombinant 1 MG Vial IM PRN (21:14)
[2021-10-13] MEDS ORDERED: Insulin Regular, Human 100 Units/ML 3 ML Vial IV ONE (21:14)
--- NOTE | 2021-10-13 21:59 | CT ---
PROCEDURE INFORMATION: Exam: CT Abdomen And Pelvis Without Contrast Exam date and time: 10/13/2021 8:47 PM Age: 41 years old Clinical indication: Other: Flank pain vomiting TECHNIQUE: Imaging protocol: Computed tomography of the abdomen and pelvis without contrast. Radiation optimization: All CT scans at this facility use at least one of these dose optimization techniques: automated exposure control; mA and/or kV adjustment per patient size (includes targeted exams where dose is matched to clinical indication); or iterative reconstruction. COMPARISON: No relevant prior studies available. FINDINGS: Lungs: There are patchy alveolar opacities in the lung bases bilaterally, most conspicuous in the left lower lobe. There are no pleural effusions. Liver: The liver is enlarged, measuring 22 cm in the craniocaudad dimension. There is diffuse fatty infiltration of the liver. Gallbladder and bile ducts: The gallbladder is surgically absent. The common bile duct measures 8.5 mm in diameter, likely reflecting compensatory dilatation. Pancreas: The pancreas is within normal limits. Spleen: The spleen is normal in size. Adrenal glands: The adrenal glands are normal in appearance. Kidneys and ureters: The kidneys are symmetric in size. There is no hydronephrosis. No renal or ureteral calculi are identified. Stomach and bowel: The stomach is not distended. No pathologically dilated small bowel loops are identified. There is no evidence of colonic wall thickening or pericolonic inflammation. Appendix: There is a normal appendix in the right lower quadrant. Intraperitoneal space: There is no free air or free fluid in the abdomen or pelvis. Vasculature: The aorta is normal in caliber. Lymph nodes: No pathologically enlarged lymph nodes are identified in the abdomen or pelvis. Urinary bladder: The urinary bladder appears normal. Reproductive: The uterus is normal in appearance. The ovaries appear normal bilaterally. Bones/joints: There is normal alignment throughout the visualized portion of the spine. No acute fractures or aggressive bone lesions are identified. Soft tissues: The soft tissues are within normal limits. IMPRESSION: 1. Patchy alveolar opacities in the lung bases bilaterally, suspicious for infectious pneumonia. 2. Enlarged fatty liver. 3. No evidence of hydronephrosis, renal or ureteral calculi. Note that an inflammatory process such as pyelonephritis cannot be excluded on the basis of a noncontrast study.
--- NOTE | 2021-10-13 22:51 | EDM.PDOC ---
ED HPI GENERAL MEDICAL PROBLEM - General Chief Complaint: Genitourinary Problem Stated Complaint: THINKS HAS KIDNEY INFECTION Time Seen by Provider: 10/13/21 20:05 Source of Information: Reports: Patient History Limitations: Reports: No Limitations - History of Present Illness INITIAL COMMENTS - FREE TEXT/NARRATIVE: ED with nausea vomiting bilateral flank pain atarted 2 days prior, chills tonight. Recent COVID one month ago. Hx ureteral stent, removed in [facility]. Prior kidney infections and feel similar. Denies any drug use since overdose one month ago. 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 - Related Data Allergies Allergy/AdvReac Type Severity Reaction Status Date / Time insulin detemir Allergy Hives Verified 10/13/21 19:28 [From Levemir U-100 Insulin] ketorolac [From Toradol] Allergy Hives Verified 10/13/21 19:28 piperacillin [From Zosyn] Allergy Hives Verified 10/13/21 19:28 tazobactam [From Zosyn] Allergy Hives Verified 10/13/21 19:28 vancomycin Allergy Hives Verified 10/13/21 19:28 Home Meds: Home Meds Ibuprofen [Motrin] 800 mg PO Q8H PRN #30 tablet 11/21/15 [Rx] Past Medical History - Past Health History Medical/Surgical History: Denies Medical/Surgical History HEENT History: Reports: None Cardiovascular History: Reports: None Respiratory History: Reports: None Gastrointestinal History: Reports: None Genitourinary History: Reports: None, Pyelonephritis, UTI, Recurrent [employer]OR [employer]IVER History: Reports: , Spontaneous Musculoskeletal History: Reports: None Neurological History: Reports: None Psychiatric History: Reports: Addiction Endocrine/Metabolic History: Reports: None, Diabetes, Type II Hematologic History: Reports: None Immunologic History: Reports: None Oncologic (Cancer) History: Reports: None Dermatologic History: Reports: None - Infectious Disease History Infectious Disease History: Reports: MRSA, Novel Coronavirus - Past Surgical History Female Surgical History: Reports: Section, Ureteral Stent Social & Family History - Family History Family Medical History: No Pertinent Family History - Tobacco Use Tobacco Use Status *Q: Unknown Ever Used Tobacco Second Hand Smoke Exposure: No - Caffeine Use Caffeine Use: Reports: Soda - Recreational Drug Use Recreational Drug Use: Yes Recreational Drug Type: Reports: Marijuana/Hashish Recreational Drug Use Frequency: Daily ED ROS GENERAL - Review of Systems Review Of Systems: See Below Constitutional: Reports: Chills, Malaise, Decreased Appetite GI/Abdominal: Reports: Nausea, Vomiting : Reports: Frequency, Other (bilateral flank pain) Skin: Reports: No Symptoms Neurological: Reports: No Symptoms ED EXAM, RENAL/ - Physical Exam Exam: See Below Exam Limited By: No Limitations General Appearance: Alert, Moderate Distress, Thin Eye Exam: Bilateral Eye: EOMI Ears: Normal External Exam, Hearing Grossly Normal Nose: Normal Inspection Throat/Mouth: Normal Inspection Head: Atraumatic, Normocephalic Neck: Normal Inspection Respiratory/Chest: No Respiratory Distress, Lungs Clear, Decreased Breath Sounds (bilateral bases) Cardiovascular: Normal Peripheral Pulses, Regular Rate, Rhythm, Tachycardia GI/Abdominal: Normal Bowel Sounds, Soft, Other (active vomiting bilious liquid) Back Exam: CVA Tenderness (L), CVA Tenderness (R) Extremities: Normal Inspection Neurological: Alert, Oriented, Normal Cognition Skin Exam: Warm, Dry, Intact Course - Vital Signs Last Recorded V/S: Last Vital Signs Temp 98.1 F 10/13/21 21:53 Pulse 140 H 10/13/21 19:56 Resp 18 10/13/21 19:56 BP 103/63 10/13/21 19:56 Pulse Ox 96 10/13/21 19:56 - Orders/Labs/Meds Orders: Active Orders 24 hr Category Date Time Status Blood Glucose Check, Bedside [RC] ONETIME Care 10/13/21 21:14 Active Blood Glucose Check, Bedside [RC] ONETIME Care 10/13/21 22:48 Active BLOOD GAS VENOUS [BG] Stat Lab 10/13/21 23:04 Ordered CULTURE BLOOD [BC] Stat Lab 10/13/21 19:40 Received CULTURE BLOOD [BC] Stat Lab 10/13/21 19:45 Received CULTURE URINE [RM] Stat Lab 10/13/21 19:29 Received STD PANEL 3 [REF] Stat Lab 10/13/21 19:21 Received Dextrose 50% in Water Med 10/13/21 21:14 Active 50 ml IVPUSH Q15M PRN Glucagon,Human Recombinant [GlucaGen] Med 10/13/21 21:14 Active 1 mg IM Q15M PRN Blood Culture x2 Reflex Set [OM.PC] Stat Oth 10/13/21 19:23 Ordered Medication Orders Dextrose/Water (50% Dextrose In Water 50 Ml Syringe) 50 ml IVPUSH Q15M PRN PRN Reason: Hypoglycemia Glucagon (Glucagon,Human Recombinant 1 Mg Vial) 1 mg IM Q15M PRN PRN Reason: Hypoglycemia Labs: Laboratory Tests 10/13/21 10/13/21 10/13/21 Range/Units 19:29 19:29 19:45 WBC 12.9 H (5.0-10.0) 10^3/uL RBC 3.69 L (4.2-5.4) 10^6/uL Hgb 11.2 L D (12.0-16.0) g/dL Hct 33.3 L (37.0-47.0) % MCV 90.2 (80-100) fL MCH 30.4 (27.0-34.0) pg MCHC 33.6 (33.0-35.0) g/dL Plt Count 226 (150-450) 10^3/uL Neut % (Auto) 95.4 H (42.2-75.2) % Lymph % (Auto) 2.5 L (20.5-50.1) % [place] % (Auto) 1.9 L (2-8) % Eos % (Auto) 0.0 L (1.0-3.0) % Baso % (Auto) 0.2 (0.0-1.0) % Sodium (136-145) mmol/L Potassium (3.5-5.1) mmol/L Chloride (98-107) mmol/L Carbon Dioxide (21-32) mmol/L Anion Gap (7-13) mEq/L BUN (7-18) mg/dL Creatinine (0.55-1.02) mg/dL Est Cr Clr Drug Dosing mL/min Estimated GFR (MDRD) BUN/Creatinine Ratio (No establ ref range) Glucose (70-99) mg/dL POC Glucose (70-99) mg/dL Lactic Acid (0.4-2.0) mmol/L Calcium (8.5-10.1) mg/dL Total Bilirubin (0.2-1.0) mg/dL AST (15-37) U/L ALT (14-59) U/L Alkaline Phosphatase (46-116) U/L Total Protein (6.4-8.2) g/dL Albumin (3.4-5.0) g/dL Globulin Albumin/Globulin Ratio HCG, Qual Urine Color Yellow (YELLOW) Urine Appearance Cloudy (CLEAR) Urine pH 5.5 (5.0-9.0) Ur Specific [place] 1.025 (1.005-1.030) Urine Protein >=300 H (NEGATIVE) Urine Glucose (UA) 500 H (NEGATIVE) Urine Ketones Negative (NEGATIVE) Urine Occult Blood Large H (NEGATIVE) Urine Nitrite Negative (NEGATIVE) Urine Bilirubin Small H (NEGATIVE) Urine Urobilinogen 0.2 (0.2-1.0) mg/dL Ur Leukocyte Esterase Trace H (NEGATIVE) Urine RBC >100 H (0-5) /HPF Urine WBC >100 H (0-5/HPF) /HPF Ur Epithelial Cells Moderate H (NOT SEEN) /HPF Urine Bacteria Moderate H (0-FEW/HPF) /HPF Urine Mucus Few H (NOT SEEN) /LPF Urine Opiates Screen Negative (NEGATIVE) Ur Oxycodone Screen Negative (NEGATIVE) Urine Methadone Screen Negative (NEGATIVE) Ur Barbiturates Screen Negative (NEGATIVE) U Tricyclic Antidepress Negative (NEGATIVE) Ur Phencyclidine Scrn Negative (NEGATIVE) Ur Amphetamine Screen Negative (NEGATIVE) U Methamphetamines Scrn Negative (NEGATIVE) Urine MDMA Screen Negative (NEGATIVE) U Benzodiazepines Scrn Negative (NEGATIVE) Urine Cocaine Screen Negative (NEGATIVE) U Marijuana (THC) Screen Positive H (NEGATIVE) Ketones Influenza Type A RNA (NEGATIVE) Influenza Type B RNA (NEGATIVE) SARS-CoV-2 RNA (ELI) (NEGATIVE) 10/13/21 10/13/21 10/13/21 Range/Units 19:45 19:45 19:45 WBC (5.0-10.0) 10^3/uL RBC (4.2-5.4) 10^6/uL Hgb (12.0-16.0) g/dL Hct (37.0-47.0) % MCV (80-100) fL MCH (27.0-34.0) pg MCHC (33.0-35.0) g/dL Plt Count (150-450) 10^3/uL Neut % (Auto) (42.2-75.2) % Lymph % (Auto) (20.5-50.1) % [place] % (Auto) (2-8) % Eos % (Auto) (1.0-3.0) % Baso % (Auto) (0.0-1.0) % Sodium 126 L (136-145) mmol/L Potassium 3.4 L (3.5-5.1) mmol/L Chloride 90 L (98-107) mmol/L Carbon Dioxide 22 (21-32) mmol/L Anion Gap 17.4 H (7-13) mEq/L BUN 24 H (7-18) mg/dL Creatinine 1.83 H (0.55-1.02) mg/dL Est Cr Clr Drug Dosing 37.57 mL/min Estimated GFR (MDRD) 30 BUN/Creatinine Ratio 13.1 (No establ ref range) Glucose 530 H* (70-99) mg/dL POC Glucose (70-99) mg/dL Lactic Acid 2.6 H* (0.4-2.0) mmol/L Calcium 8.5 (8.5-10.1) mg/dL Total Bilirubin 0.3 (0.2-1.0) mg/dL AST 18 (15-37) U/L ALT 11 L (14-59) U/L Alkaline Phosphatase 159 H (46-116) U/L Total Protein 7.8 (6.4-8.2) g/dL Albumin 2.3 L (3.4-5.0) g/dL Globulin 5.5 Albumin/Globulin Ratio 0.42 HCG, Qual Negative Urine Color (YELLOW) Urine Appearance (CLEAR) Urine pH (5.0-9.0) Ur Specific [place] (1.005-1.030) Urine Protein (NEGATIVE) Urine Glucose (UA) (NEGATIVE) Urine Ketones (NEGATIVE) Urine Occult Blood (NEGATIVE) Urine Nitrite (NEGATIVE) Urine Bilirubin (NEGATIVE) Urine Urobilinogen (0.2-1.0) mg/dL Ur Leukocyte Esterase (NEGATIVE) Urine RBC (0-5) /HPF Urine WBC (0-5/HPF) /HPF Ur Epithelial Cells (NOT SEEN) /HPF Urine Bacteria (0-FEW/HPF) /HPF Urine Mucus (NOT SEEN) /LPF Urine Opiates Screen (NEGATIVE) Ur Oxycodone Screen (NEGATIVE) Urine Methadone Screen (NEGATIVE) Ur Barbiturates Screen (NEGATIVE) U Tricyclic Antidepress (NEGATIVE) Ur Phencyclidine Scrn (NEGATIVE) Ur Amphetamine Screen (NEGATIVE) U Methamphetamines Scrn (NEGATIVE) Urine MDMA Screen (NEGATIVE) U Benzodiazepines Scrn (NEGATIVE) Urine Cocaine Screen (NEGATIVE) U Marijuana (THC) Screen (NEGATIVE) Ketones Influenza Type A RNA (NEGATIVE) Influenza Type B RNA (NEGATIVE) SARS-CoV-2 RNA (ELI) (NEGATIVE) 10/13/21 10/13/21 10/13/21 Range/Units 19:45 21:54 22:55 WBC (5.0-10.0) 10^3/uL RBC (4.2-5.4) 10^6/uL Hgb (12.0-16.0) g/dL Hct (37.0-47.0) % MCV (80-100) fL MCH (27.0-34.0) pg MCHC (33.0-35.0) g/dL Plt Count (150-450) 10^3/uL Neut % (Auto) (42.2-75.2) % Lymph % (Auto) (20.5-50.1) % [place] % (Auto) (2-8) % Eos % (Auto) (1.0-3.0) % Baso % (Auto) (0.0-1.0) % Sodium (136-145) mmol/L Potassium (3.5-5.1) mmol/L Chloride (98-107) mmol/L Carbon Dioxide (21-32) mmol/L Anion Gap (7-13) mEq/L BUN (7-18) mg/dL Creatinine (0.55-1.02) mg/dL Est Cr Clr Drug Dosing mL/min Estimated GFR (MDRD) BUN/Creatinine Ratio (No establ ref range) Glucose (70-99) mg/dL POC Glucose 305 H 215 H (70-99) mg/dL Lactic Acid (0.4-2.0) mmol/L Calcium (8.5-10.1) mg/dL Total Bilirubin (0.2-1.0) mg/dL AST (15-37) U/L ALT (14-59) U/L Alkaline Phosphatase (46-116) U/L Total Protein (6.4-8.2) g/dL Albumin (3.4-5.0) g/dL Globulin Albumin/Globulin Ratio HCG, Qual Urine Color (YELLOW) Urine Appearance (CLEAR) Urine pH (5.0-9.0) Ur Specific [place] (1.005-1.030) Urine Protein (NEGATIVE) Urine Glucose (UA) (NEGATIVE) Urine Ketones (NEGATIVE) Urine Occult Blood (NEGATIVE) Urine Nitrite (NEGATIVE) Urine Bilirubin (NEGATIVE) Urine Urobilinogen (0.2-1.0) mg/dL Ur Leukocyte Esterase (NEGATIVE) Urine RBC (0-5) /HPF Urine WBC (0-5/HPF) /HPF Ur Epithelial Cells (NOT SEEN) /HPF Urine Bacteria (0-FEW/HPF) /HPF Urine Mucus (NOT SEEN) /LPF Urine Opiates Screen (NEGATIVE) Ur Oxycodone Screen (NEGATIVE) Urine Methadone Screen (NEGATIVE) Ur Barbiturates Screen (NEGATIVE) U Tricyclic Antidepress (NEGATIVE) Ur Phencyclidine Scrn (NEGATIVE) Ur Amphetamine Screen (NEGATIVE) U Methamphetamines Scrn (NEGATIVE) Urine MDMA Screen (NEGATIVE) U Benzodiazepines Scrn (NEGATIVE) Urine Cocaine Screen (NEGATIVE) U Marijuana (THC) Screen (NEGATIVE) Ketones Negative Influenza Type A RNA (NEGATIVE) Influenza Type B RNA (NEGATIVE) SARS-CoV-2 RNA (ELI) (NEGATIVE) 10/13/21 Range/Units 22:56 WBC (5.0-10.0) 10^3/uL RBC (4.2-5.4) 10^6/uL Hgb (12.0-16.0) g/dL Hct (37.0-47.0) % MCV (80-100) fL MCH (27.0-34.0) pg MCHC (33.0-35.0) g/dL Plt Count (150-450) 10^3/uL Neut % (Auto) (42.2-75.2) % Lymph % (Auto) (20.5-50.1) % [place] % (Auto) (2-8) % Eos % (Auto) (1.0-3.0) % Baso % (Auto) (0.0-1.0) % Sodium (136-145) mmol/L Potassium (3.5-5.1) mmol/L Chloride (98-107) mmol/L Carbon Dioxide (21-32) mmol/L Anion Gap (7-13) mEq/L BUN (7-18) mg/dL Creatinine (0.55-1.02) mg/dL Est Cr Clr Drug Dosing mL/min Estimated GFR (MDRD) BUN/Creatinine Ratio (No establ ref range) Glucose (70-99) mg/dL POC Glucose (70-99) mg/dL Lactic Acid (0.4-2.0) mmol/L Calcium (8.5-10.1) mg/dL Total Bilirubin (0.2-1.0) mg/dL AST (15-37) U/L ALT (14-59) U/L Alkaline Phosphatase (46-116) U/L Total Protein (6.4-8.2) g/dL Albumin (3.4-5.0) g/dL Globulin Albumin/Globulin Ratio HCG, Qual Urine Color (YELLOW) Urine Appearance (CLEAR) Urine pH (5.0-9.0) Ur Specific [place] (1.005-1.030) Urine Protein (NEGATIVE) Urine Glucose (UA) (NEGATIVE) Urine Ketones (NEGATIVE) Urine Occult Blood (NEGATIVE) Urine Nitrite (NEGATIVE) Urine Bilirubin (NEGATIVE) Urine Urobilinogen (0.2-1.0) mg/dL Ur Leukocyte Esterase (NEGATIVE) Urine RBC (0-5) /HPF Urine WBC (0-5/HPF) /HPF Ur Epithelial Cells (NOT SEEN) /HPF Urine Bacteria (0-FEW/HPF) /HPF Urine Mucus (NOT SEEN) /LPF Urine Opiates Screen (NEGATIVE) Ur Oxycodone Screen (NEGATIVE) Urine Methadone Screen (NEGATIVE) Ur Barbiturates Screen (NEGATIVE) U Tricyclic Antidepress (NEGATIVE) Ur Phencyclidine Scrn (NEGATIVE) Ur Amphetamine Screen (NEGATIVE) U Methamphetamines Scrn (NEGATIVE) Urine MDMA Screen (NEGATIVE) U Benzodiazepines Scrn (NEGATIVE) Urine Cocaine Screen (NEGATIVE) U Marijuana (THC) Screen (NEGATIVE) Ketones Influenza Type A RNA Negative (NEGATIVE) Influenza Type B RNA Negative (NEGATIVE) SARS-CoV-2 RNA (ELI) Negative (NEGATIVE) Meds: Medications Generic Name Dose Route Start Last Admin Trade Name Freq PRN Reason Stop Dose Admin Dextrose/Water 50 ml 10/13/21 21:14 50% Dextrose In Water 50 Ml Syringe IVPUSH Q15M PRN Hypoglycemia Glucagon 1 mg 10/13/21 21:14 Glucagon,Human Recombinant 1 Mg Vial IM Q15M PRN Hypoglycemia Discontinued Medications Generic Name Dose Route Start Last Admin Trade Name Freq PRN Reason Stop Dose Admin Fentanyl 50 mcg 10/13/21 20:05 10/13/21 20:09 Fentanyl 100 Mcg/2 Ml Sdv IVPUSH 10/13/21 20:06 50 mcg ONETIME ONE Administration Protocol Sodium Chloride 1,000 mls @ 999 mls/hr 10/13/21 19:23 10/13/21 19:52 Normal Sal[place] IV 10/13/21 20:23 999 mls/hr .BOLUS ONE Administration Levofloxacin/Dextrose 750 mg/ 150 mls @ 100 mls/hr 10/13/21 22:56 10/13/21 23:15 Premix IV 10/14/21 00:25 100 mls/hr ONETIME ONE Administration Insulin Human Regular 10 unit 10/13/21 21:14 10/13/21 21:25 Insulin Regular, Human 100 Units/Ml 3 Ml Vial IV 10/13/21 21:15 10 units ONETIME ONE Administration Protocol Ondansetron HCl 4 mg 10/13/21 20:03 10/13/21 20:09 Ondansetron 4 Mg/2 Ml Sdv IVPUSH 10/13/21 20:04 4 mg ONETIME ONE Administration - Re-Assessments/Exams Free Text/Narrative Re-Assessment/Exam: 10/14/21 00:40 Nausea vomiting improved, Flank pain continues, No cough. Glucose improved. Light dozing, moans with movement. 10/14/21 00:42 Departure - Departure Time of Disposition: 00:42 Disposition: Admitted As Inpatient 65 Condition: Good Clinical Impression: UTI, Urinary tract infectious disease, History of COVID-19, Hyperglycemia - Discharge Information *PRESCRIPTION DRUG MONITORING PROGRAM REVIEWED*: No *COPY OF PRESCRIPTION DRUG MONITORING REPORT IN PATIENT DORYS: No Forms: ED Department Discharge Sepsis Event Note (ED) - Evaluation Sepsis Screening Result: No Definite Risk - Focused Exam Vital Signs: Vital Signs Temp Pulse Resp BP Pulse Ox 10/13/21 21:53 98.1 F 10/13/21 19:56 100.0 F 140 H 18 103/63 96 - My Orders Last 24 Hours: My Active Orders 10/13/21 19:21 STD PANEL 3 [REF] Stat 10/13/21 19:23 Blood Culture x2 Reflex Set [OM.PC] Stat 10/13/21 19:29 CULTURE URINE [RM] Stat 10/13/21 19:40 CULTURE BLOOD [BC] Stat 10/13/21 19:45 CULTURE BLOOD [BC] Stat 10/13/21 21:14 Blood Glucose Check, Bedside [RC] ONETIME Dextrose 50% in Water 50 ml IVPUSH Q15M PRN Glucagon,Human Recombinant [GlucaGen] 1 mg IM Q15M PRN 10/13/21 22:48 Blood Glucose Check, Bedside [RC] ONETIME 10/13/21 23:04 BLOOD GAS VENOUS [BG] Stat - Assessment/Plan Last 24 Hours: My Active Orders 10/13/21 19:21 STD PANEL 3 [REF] Stat 10/13/21 19:23 Blood Culture x2 Reflex Set [OM.PC] Stat 10/13/21 19:29 CULTURE URINE [RM] Stat 10/13/21 19:40 CULTURE BLOOD [BC] Stat 10/13/21 19:45 CULTURE BLOOD [BC] Stat 10/13/21 21:14 Blood Glucose Check, Bedside [RC] ONETIME Dextrose 50% in Water 50 ml IVPUSH Q15M PRN Glucagon,Human Recombinant [GlucaGen] 1 mg IM Q15M PRN 10/13/21 22:48 Blood Glucose Check, Bedside [RC] ONETIME 10/13/21 23:04 BLOOD GAS VENOUS [BG] Stat
[2021-10-13] MEDS ORDERED: Levofloxacin/Dextrose 5%-Water 750 MG in Premix Bag 1 BAG IV ONE (22:56)
[2021-10-13 23:41] LABS: CORONAVIRUS COVID-19 NAA NEGATIVE (NEGATIVE)
[2021-10-14] MEDS ORDERED: Sodium Chloride 0.9% 1,000 ML IV ONE (00:36)
[2021-10-14] MEDS ORDERED: Glucagon,Human Recombinant 1 MG Vial IM PRN (01:49)
[2021-10-14] MEDS ORDERED: 50% Dextrose in Water 50 ML Syringe IVPUSH PRN ×2 (01:49→01:50)
[2021-10-14] MEDS ORDERED: Potassium Chloride 10 MEQ Tab.ER PO ONE (01:50)
[2021-10-14] MEDS ORDERED: Temazepam 15 MG Cap PO PRN (01:52)
[2021-10-14] MEDS ORDERED: NS + KCl 20mEq/L 1,000 ML IV SCH (02:00)
--- NOTE | 2021-10-14 02:00 | PCM.HP ---
H&P History of Present Illness - General Date of Service: 10/14/21 Admit Problem/Dx: Admission Diagnosis/Problem Admission Diagnosis/Problem UTI, Urinary tract infectious disease Source of Information: Patient - History of Present Illness Initial Comments - Free Text/Narative: 41 yo with ho DM - not taking meds, not checking BS r. ureteral stent - removed 2 yrs ago (she is unclear if she had stones or not) Covid pneumonia 3 weeks ago developed mod to severe b/l falnk pain 2 days prior to admission associated with nausea, fever (t: 100) worse with movements, better with pain meds in ER had similar pain when she was dx-ed with uti - Related Data Allergies/Adverse Reactions: Allergies Allergy/AdvReac Type Severity Reaction Status Date / Time insulin detemir Allergy Hives Verified 10/13/21 19:28 [From Levemir U-100 Insulin] ketorolac [From Toradol] Allergy Hives Verified 10/13/21 19:28 piperacillin [From Zosyn] Allergy Hives Verified 10/13/21 19:28 tazobactam [From Zosyn] Allergy Hives Verified 10/13/21 19:28 vancomycin Allergy Hives Verified 10/13/21 19:28 Home Medications: Home Meds Ibuprofen [Motrin] 800 mg PO Q8H PRN #30 tablet 11/21/15 [Rx] Past Medical History - Past Health History Medical/Surgical History: Denies Medical/Surgical History HEENT History: Reports: None Cardiovascular History: Reports: None Respiratory History: Reports: None Gastrointestinal History: Reports: None Genitourinary History: Reports: None, Pyelonephritis, UTI, 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: 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: , 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 Musculoskeletal History: Reports: None Neurological History: Reports: None Psychiatric History: Reports: Addiction Endocrine/Metabolic History: Reports: None, Diabetes, Type II Hematologic History: Reports: None Immunologic History: Reports: None Oncologic (Cancer) History: Reports: None Dermatologic History: Reports: None - Infectious Disease History Infectious Disease History: Reports: MRSA, Novel Coronavirus - Past Surgical History Female Surgical History: Reports: Section, Ureteral Stent Social & Family History - Family History Family Medical History: No Pertinent Family History - Tobacco Use Tobacco Use Status *Q: Unknown Ever Used Tobacco Second Hand Smoke Exposure: No - Caffeine Use Caffeine Use: Reports: Soda - Recreational Drug Use Recreational Drug Use: Yes Recreational Drug Type: Reports: Marijuana/Hashish Recreational Drug Use Frequency: Daily H&P Review of Systems - Review of Systems: Review Of Systems: See Below General: Reports: Fever, Chills, Malaise, Weakness Pulmonary: Denies: Shortness of Breath Cardiovascular: Denies: Chest Pain Gastrointestinal: Reports: Nausea Genitourinary: Reports: Dysuria, Flank Pain (b/l) Neurological: Denies: Confusion Exam - Exam Exam: See Below - Vital Signs Vital Signs: Last Vital Signs Temp 98.1 F 10/13/21 21:53 Pulse 140 H 10/13/21 19:56 Resp 18 10/13/21 19:56 BP 103/63 10/13/21 19:56 Pulse Ox 96 10/13/21 19:56 Weight: 131 lb - Exam General: Alert, Oriented Neck: Supple Lungs: Clear to Auscultation, Normal Respiratory Effort Cardiovascular: Regular Rate, Regular Rhythm GI/Abdominal Exam: Normal Bowel Sounds, Soft, Non-Tender (Female) Exam: Other (flank tenderness R>L) Extremities: No Pedal Edema Skin: Warm, Dry Neuro Extensive - Mental Status: Alert, Oriented x3 Neuro Extensive - Motor, Sensory, Reflexes: No: Abnormal Motor - Patient Data Lab Results Last 24 hrs: Laboratory Results - last 24 hr 10/13/21 10/13/21 10/13/21 Range/Units 19:29 19:29 19:45 WBC 12.9 H (5.0-10.0) 10^3/uL RBC 3.69 L (4.2-5.4) 10^6/uL Hgb 11.2 L D (12.0-16.0) g/dL Hct 33.3 L (37.0-47.0) % MCV 90.2 (80-100) fL MCH 30.4 (27.0-34.0) pg MCHC 33.6 (33.0-35.0) g/dL Plt Count 226 (150-450) 10^3/uL Neut % (Auto) 95.4 H (42.2-75.2) % Lymph % (Auto) 2.5 L (20.5-50.1) % Cross % (Auto) 1.9 L (2-8) % Eos % (Auto) 0.0 L (1.0-3.0) % Baso % (Auto) 0.2 (0.0-1.0) % Sodium (136-145) mmol/L Potassium (3.5-5.1) mmol/L Chloride (98-107) mmol/L Carbon Dioxide (21-32) mmol/L Anion Gap (7-13) mEq/L BUN (7-18) mg/dL Creatinine (0.55-1.02) mg/dL Est Cr Clr Drug Dosing mL/min Estimated GFR (MDRD) BUN/Creatinine Ratio (No establ ref range) Glucose (70-99) mg/dL POC Glucose (70-99) mg/dL Lactic Acid (0.4-2.0) mmol/L Calcium (8.5-10.1) mg/dL Total Bilirubin (0.2-1.0) mg/dL AST (15-37) U/L ALT (14-59) U/L Alkaline Phosphatase (46-116) U/L Total Protein (6.4-8.2) g/dL Albumin (3.4-5.0) g/dL Globulin Albumin/Globulin Ratio HCG, Qual Urine Color Yellow (YELLOW) Urine Appearance Cloudy (CLEAR) Urine pH 5.5 (5.0-9.0) Ur Specific [place] 1.025 (1.005-1.030) Urine Protein >=300 H (NEGATIVE) Urine Glucose (UA) 500 H (NEGATIVE) Urine Ketones Negative (NEGATIVE) Urine Occult Blood Large H (NEGATIVE) Urine Nitrite Negative (NEGATIVE) Urine Bilirubin Small H (NEGATIVE) Urine Urobilinogen 0.2 (0.2-1.0) mg/dL Ur Leukocyte Esterase Trace H (NEGATIVE) Urine RBC >100 H (0-5) /HPF Urine WBC >100 H (0-5/HPF) /HPF Ur Epithelial Cells Moderate H (NOT SEEN) /HPF Urine Bacteria Moderate H (0-FEW/HPF) /HPF Urine Mucus Few H (NOT SEEN) /LPF Urine Opiates Screen Negative (NEGATIVE) Ur Oxycodone Screen Negative (NEGATIVE) Urine Methadone Screen Negative (NEGATIVE) Ur Barbiturates Screen Negative (NEGATIVE) U Tricyclic Antidepress Negative (NEGATIVE) Ur Phencyclidine Scrn Negative (NEGATIVE) Ur Amphetamine Screen Negative (NEGATIVE) U Methamphetamines Scrn Negative (NEGATIVE) Urine MDMA Screen Negative (NEGATIVE) U Benzodiazepines Scrn Negative (NEGATIVE) Urine Cocaine Screen Negative (NEGATIVE) U Marijuana (THC) Screen Positive H (NEGATIVE) Ketones Influenza Type A RNA (NEGATIVE) Influenza Type B RNA (NEGATIVE) SARS-CoV-2 RNA (ELI) (NEGATIVE) 10/13/21 10/13/21 10/13/21 Range/Units 19:45 19:45 19:45 WBC (5.0-10.0) 10^3/uL RBC (4.2-5.4) 10^6/uL Hgb (12.0-16.0) g/dL Hct (37.0-47.0) % MCV (80-100) fL MCH (27.0-34.0) pg MCHC (33.0-35.0) g/dL Plt Count (150-450) 10^3/uL Neut % (Auto) (42.2-75.2) % Lymph % (Auto) (20.5-50.1) % Cross % (Auto) (2-8) % Eos % (Auto) (1.0-3.0) % Baso % (Auto) (0.0-1.0) % Sodium 126 L (136-145) mmol/L Potassium 3.4 L (3.5-5.1) mmol/L Chloride 90 L (98-107) mmol/L Carbon Dioxide 22 (21-32) mmol/L Anion Gap 17.4 H (7-13) mEq/L BUN 24 H (7-18) mg/dL Creatinine 1.83 H (0.55-1.02) mg/dL Est Cr Clr Drug Dosing 37.57 mL/min Estimated GFR (MDRD) 30 BUN/Creatinine Ratio 13.1 (No establ ref range) Glucose 530 H* (70-99) mg/dL POC Glucose (70-99) mg/dL Lactic Acid 2.6 H* (0.4-2.0) mmol/L Calcium 8.5 (8.5-10.1) mg/dL Total Bilirubin 0.3 (0.2-1.0) mg/dL AST 18 (15-37) U/L ALT 11 L (14-59) U/L Alkaline Phosphatase 159 H (46-116) U/L Total Protein 7.8 (6.4-8.2) g/dL Albumin 2.3 L (3.4-5.0) g/dL Globulin 5.5 Albumin/Globulin Ratio 0.42 HCG, Qual Negative Urine Color (YELLOW) Urine Appearance (CLEAR) Urine pH (5.0-9.0) Ur Specific [place] (1.005-1.030) Urine Protein (NEGATIVE) Urine Glucose (UA) (NEGATIVE) Urine Ketones (NEGATIVE) Urine Occult Blood (NEGATIVE) Urine Nitrite (NEGATIVE) Urine Bilirubin (NEGATIVE) Urine Urobilinogen (0.2-1.0) mg/dL Ur Leukocyte Esterase (NEGATIVE) Urine RBC (0-5) /HPF Urine WBC (0-5/HPF) /HPF Ur Epithelial Cells (NOT SEEN) /HPF Urine Bacteria (0-FEW/HPF) /HPF Urine Mucus (NOT SEEN) /LPF Urine Opiates Screen (NEGATIVE) Ur Oxycodone Screen (NEGATIVE) Urine Methadone Screen (NEGATIVE) Ur Barbiturates Screen (NEGATIVE) U Tricyclic Antidepress (NEGATIVE) Ur Phencyclidine Scrn (NEGATIVE) Ur Amphetamine Screen (NEGATIVE) U Methamphetamines Scrn (NEGATIVE) Urine MDMA Screen (NEGATIVE) U Benzodiazepines Scrn (NEGATIVE) Urine Cocaine Screen (NEGATIVE) U Marijuana (THC) Screen (NEGATIVE) Ketones Influenza Type A RNA (NEGATIVE) Influenza Type B RNA (NEGATIVE) SARS-CoV-2 RNA (ELI) (NEGATIVE) 10/13/21 10/13/21 10/13/21 Range/Units 19:45 21:54 22:55 WBC (5.0-10.0) 10^3/uL RBC (4.2-5.4) 10^6/uL Hgb (12.0-16.0) g/dL Hct (37.0-47.0) % MCV (80-100) fL MCH (27.0-34.0) pg MCHC (33.0-35.0) g/dL Plt Count (150-450) 10^3/uL Neut % (Auto) (42.2-75.2) % Lymph % (Auto) (20.5-50.1) % Cross % (Auto) (2-8) % Eos % (Auto) (1.0-3.0) % Baso % (Auto) (0.0-1.0) % Sodium (136-145) mmol/L Potassium (3.5-5.1) mmol/L Chloride (98-107) mmol/L Carbon Dioxide (21-32) mmol/L Anion Gap (7-13) mEq/L BUN (7-18) mg/dL Creatinine (0.55-1.02) mg/dL Est Cr Clr Drug Dosing mL/min Estimated GFR (MDRD) BUN/Creatinine Ratio (No establ ref range) Glucose (70-99) mg/dL POC Glucose 305 H 215 H (70-99) mg/dL Lactic Acid (0.4-2.0) mmol/L Calcium (8.5-10.1) mg/dL Total Bilirubin (0.2-1.0) mg/dL AST (15-37) U/L ALT (14-59) U/L Alkaline Phosphatase (46-116) U/L Total Protein (6.4-8.2) g/dL Albumin (3.4-5.0) g/dL Globulin Albumin/Globulin Ratio HCG, Qual Urine Color (YELLOW) Urine Appearance (CLEAR) Urine pH (5.0-9.0) Ur Specific [place] (1.005-1.030) Urine Protein (NEGATIVE) Urine Glucose (UA) (NEGATIVE) Urine Ketones (NEGATIVE) Urine Occult Blood (NEGATIVE) Urine Nitrite (NEGATIVE) Urine Bilirubin (NEGATIVE) Urine Urobilinogen (0.2-1.0) mg/dL Ur Leukocyte Esterase (NEGATIVE) Urine RBC (0-5) /HPF Urine WBC (0-5/HPF) /HPF Ur Epithelial Cells (NOT SEEN) /HPF Urine Bacteria (0-FEW/HPF) /HPF Urine Mucus (NOT SEEN) /LPF Urine Opiates Screen (NEGATIVE) Ur Oxycodone Screen (NEGATIVE) Urine Methadone Screen (NEGATIVE) Ur Barbiturates Screen (NEGATIVE) U Tricyclic Antidepress (NEGATIVE) Ur Phencyclidine Scrn (NEGATIVE) Ur Amphetamine Screen (NEGATIVE) U Methamphetamines Scrn (NEGATIVE) Urine MDMA Screen (NEGATIVE) U Benzodiazepines Scrn (NEGATIVE) Urine Cocaine Screen (NEGATIVE) U Marijuana (THC) Screen (NEGATIVE) Ketones Negative Influenza Type A RNA (NEGATIVE) Influenza Type B RNA (NEGATIVE) SARS-CoV-2 RNA (ELI) (NEGATIVE) 10/13/21 Range/Units 22:56 WBC (5.0-10.0) 10^3/uL RBC (4.2-5.4) 10^6/uL Hgb (12.0-16.0) g/dL Hct (37.0-47.0) % MCV (80-100) fL MCH (27.0-34.0) pg MCHC (33.0-35.0) g/dL Plt Count (150-450) 10^3/uL Neut % (Auto) (42.2-75.2) % Lymph % (Auto) (20.5-50.1) % Cross % (Auto) (2-8) % Eos % (Auto) (1.0-3.0) % Baso % (Auto) (0.0-1.0) % Sodium (136-145) mmol/L Potassium (3.5-5.1) mmol/L Chloride (98-107) mmol/L Carbon Dioxide (21-32) mmol/L Anion Gap (7-13) mEq/L BUN (7-18) mg/dL Creatinine (0.55-1.02) mg/dL Est Cr Clr Drug Dosing mL/min Estimated GFR (MDRD) BUN/Creatinine Ratio (No establ ref range) Glucose (70-99) mg/dL POC Glucose (70-99) mg/dL Lactic Acid (0.4-2.0) mmol/L Calcium (8.5-10.1) mg/dL Total Bilirubin (0.2-1.0) mg/dL AST (15-37) U/L ALT (14-59) U/L Alkaline Phosphatase (46-116) U/L Total Protein (6.4-8.2) g/dL Albumin (3.4-5.0) g/dL Globulin Albumin/Globulin Ratio HCG, Qual Urine Color (YELLOW) Urine Appearance (CLEAR) Urine pH (5.0-9.0) Ur Specific [place] (1.005-1.030) Urine Protein (NEGATIVE) Urine Glucose (UA) (NEGATIVE) Urine Ketones (NEGATIVE) Urine Occult Blood (NEGATIVE) Urine Nitrite (NEGATIVE) Urine Bilirubin (NEGATIVE) Urine Urobilinogen (0.2-1.0) mg/dL Ur Leukocyte Esterase (NEGATIVE) Urine RBC (0-5) /HPF Urine WBC (0-5/HPF) /HPF Ur Epithelial Cells (NOT SEEN) /HPF Urine Bacteria (0-FEW/HPF) /HPF Urine Mucus (NOT SEEN) /LPF Urine Opiates Screen (NEGATIVE) Ur Oxycodone Screen (NEGATIVE) Urine Methadone Screen (NEGATIVE) Ur Barbiturates Screen (NEGATIVE) U Tricyclic Antidepress (NEGATIVE) Ur Phencyclidine Scrn (NEGATIVE) Ur Amphetamine Screen (NEGATIVE) U Methamphetamines Scrn (NEGATIVE) Urine MDMA Screen (NEGATIVE) U Benzodiazepines Scrn (NEGATIVE) Urine Cocaine Screen (NEGATIVE) U Marijuana (THC) Screen (NEGATIVE) Ketones Influenza Type A RNA Negative (NEGATIVE) Influenza Type B RNA Negative (NEGATIVE) SARS-CoV-2 RNA (ELI) Negative (NEGATIVE) Result Diagrams: 10/13/21 19:45 10/13/21 19:45 - Problem List (1) Diabetes SNOMED Code(s): 27721642 ICD Code: E11.9 - TYPE 2 DIABETES MELLITUS WITHOUT COMPLICATIONS Status: Acute Current Visit: Yes (2) SAM (acute kidney injury) SNOMED Code(s): 38364786, 27939754 ICD Code: N17.9 - ACUTE KIDNEY FAILURE, UNSPECIFIED Status: Acute Current Visit: Yes (3) Hypokalemia SNOMED Code(s): 10255769 ICD Code: E87.6 - HYPOKALEMIA Status: Acute Current Visit: Yes (4) Pseudohyponatremia SNOMED Code(s): 404408770 ICD Code: R79.89 - OTHER SPECIFIED ABNORMAL FINDINGS OF BLOOD CHEMISTRY Status: Acute Current Visit: Yes (5) Sepsis SNOMED Code(s): 87934055 ICD Code: A41.9 - SEPSIS, UNSPECIFIED ORGANISM Status: Acute Current Visit: Yes (6) History of COVID-19 SNOMED Code(s): 528222945966318862, 264448154834289547 ICD Code: Z86.16 - PERSONAL HISTORY OF COVID-19 Status: Acute Current Visit: No (7) UTI, Urinary tract infectious disease SNOMED Code(s): 37905332 ICD Code: N39.0 - URINARY TRACT INFECTION, SITE NOT SPECIFIED Status: Acute Current Visit: No Problem List Initiated/Reviewed/Updated: Yes Orders Last 24hrs: Active Orders 24 hr Category Date Time Status Admission Diagnosis [ADT] Stat ADT 10/14/21 00:44 Ordered Admission Status [Patient Status] [ADT] Routine ADT 10/14/21 00:44 Active Blood Glucose Check, Bedside [RC] ONETIME Care 10/13/21 21:14 Active Blood Glucose Check, Bedside [RC] ONETIME Care 10/13/21 22:48 Active Blood Glucose Check, Bedside [RC] WITHMEALSANDBED Care 10/14/21 01:50 Ordered Oxygen Therapy [RC] PRN Care 10/14/21 01:53 Ordered Up With Assistance [RC] ASDIRECTED Care 10/14/21 01:52 Ordered VTE/DVT Education [RC] PER UNIT ROUTINE Care 10/14/21 01:53 Ordered Vital Signs [RC] Q4H Care 10/14/21 01:53 Ordered Consistent Carbohydrate Diet [DIET] Diet 10/14/21 Breakfast Ordered BASIC METABOLIC PANEL,BMP [CHEM] AM Lab 10/14/21 05:11 Ordered BASIC METABOLIC PANEL,BMP [CHEM] AM Lab 10/15/21 05:11 Ordered BLOOD GAS VENOUS [BG] Stat Lab 10/13/21 23:04 Ordered CBC WITH AUTO DIFF [HEME] AM Lab 10/14/21 05:11 Ordered CBC WITH AUTO DIFF [HEME] AM Lab 10/15/21 05:11 Ordered CULTURE BLOOD [BC] Stat Lab 10/13/21 19:40 Received CULTURE BLOOD [BC] Stat Lab 10/13/21 19:45 Received CULTURE URINE [RM] Stat Lab 10/13/21 19:29 Received LACTIC ACID [CHEM] Routine Lab 10/14/21 01:48 Ordered MAGNESIUM [CHEM] AM Lab 10/14/21 05:11 Ordered PHOSPHORUS [CHEM] AM Lab 10/14/21 05:11 Ordered STD PANEL 3 [REF] Stat Lab 10/13/21 19:21 Received Acetaminophen [TylenoL] Med 10/14/21 01:52 Ordered 650 mg PO Q4H PRN Dextrose 50% in Water Med 10/14/21 01:50 Ordered 25 ml IVPUSH ASDIRECTED PRN Dextrose 50% in Water Med 10/13/21 21:14 Active 50 ml IVPUSH Q15M PRN Dextrose 50% in Water Med 10/14/21 01:49 Ordered 50 ml IVPUSH Q15M PRN Glucagon,Human Recombinant [GlucaGen] Med 10/13/21 21:14 Active 1 mg IM Q15M PRN Heparin Sodium Med 10/14/21 06:00 Ordered 5,000 units SUBCUT Q8HR Insulin Glarg,Human.Rec.Analog [LantUS] Med 10/14/21 09:00 Ordered 10 unit SUBCUT DAILY Insulin Lispro [HumaLOG] Med 10/14/21 08:00 Ordered See Protocol SUBCUT WITHMEALSANDBED Levofloxacin/Dextrose 5%-Water [Levaquin in D5W 500 MG/ Med 10/14/21 14:00 Ordered 100 ML] 500 mg Premix Bag 1 bag IV Q24H Morphine Med 10/14/21 01:52 Ordered 1 mg IVPUSH Q2H PRN Ondansetron [Zofran ODT] Med 10/14/21 01:52 Ordered 4 mg PO Q6H PRN Ondansetron [Zofran] Med 10/14/21 01:52 Ordered 4 mg IVPUSH Q6H PRN Potassium Chloride [Klor-Con 10] Med 10/14/21 01:50 Once 40 meq PO ONETIME ONE Sodium Chloride 0.9% with KCl 20 mEq @ 150 mL/Hr (1000 Med 10/14/21 02:00 Ordered mL) NS + KCl 20mEq/L [Normal Saline with 20 mEq KCl] 1,000 ml IV ASDIRECTED Temazepam [Restoril] Med 10/14/21 01:52 Ordered 15 mg PO BEDTIME PRN oxyCODONE Med 10/14/21 01:52 Ordered 5 mg PO Q4H PRN Blood Culture x2 Reflex Set [OM.PC] Stat Oth 10/13/21 19:23 Ordered Resuscitation Status Routine Resus Stat 10/14/21 01:52 Ordered Medication Orders Dextrose/Water (50% Dextrose In Water 50 Ml Syringe) 50 ml IVPUSH Q15M PRN PRN Reason: Hypoglycemia Dextrose/Water (50% Dextrose In Water 50 Ml Syringe) 50 ml IVPUSH Q15M PRN PRN Reason: Hypoglycemia Dextrose/Water (50% Dextrose In Water 50 Ml Syringe) 25 ml IVPUSH ASDIRECTED PRN PRN Reason: Hypoglycemia BS<70 Glucagon (Glucagon,Human Recombinant 1 Mg Vial) 1 mg IM Q15M PRN PRN Reason: Hypoglycemia Levofloxacin/Dextrose 500 mg/ (Premix) 100 mls @ 100 mls/hr IV Q24H EV Potassium Chloride/Sodium Chloride (Normal Saline With 20 Meq Kcl) 1,000 mls @ 150 mls/hr IV ASDIRECTED EV Insulin Glargine (Insulin Glarg,Human.Rec.Analog 100 Unit/Ml) 10 unit SUBCUT D [facility]ILY [facility] Insulin Human Lispro (Insulin Lispro 100 Units/Ml 3 Ml Vial) 0 unit SUBCUT WITHMEALSANDBED [facility]; Protocol Potassium Chloride (Potassium Chloride 10 Meq Tab.Er) 40 meq PO ONETIME ONE Stop: 10/14/21 01:51 Assessment/Plan Comment:: presented with fever, flank pain found to have uti, possible pyelo, uncontrolled BS Sepsis With lactic acidosis, fever, leukocytosis Likely due to UTI Hydrate well Trend lactic acid Dm Type I but not on Medications Will start lantus, humolog supplemental insulin hypoglycemia protocol as needed uti, possible pyelonephritis send urine cx send Blood cx treat empirically with levofloxacin SAM Due to sepsis, uncontrolled DM, uti Will hydrate and recheck recent covid 19 infection (3 weeks ago URTI symptoms) Abnormal cxr likely due to prior infection Will be on levofloxacin hyponatremia- pseudohyponatremia due to high BSs follow with hydration, BS control hypokalemia replace and follow dvt prophylaxis with sq heparin
[2021-10-14] MEDS: Morphine 2 MG/ML SYRINGE IVPUSH PRN ×2 (02:17→05:29)
[2021-10-14] MEDS: Ondansetron 4 MG/2 ML SDV IVPUSH PRN ×3 (02:26→20:00)
[2021-10-14] MEDS: Heparin Sodium 5,000 Units/ML Vial SUBCUT SCH ×3 (05:29→21:43)
[2021-10-14 06:49] LABS: ANION GAP 15.7 mEq/L (7-13)
[2021-10-14] MEDS: oxyCODONE 5 MG Tab PO PRN (06:59)
[2021-10-14] MEDS: Acetaminophen 325 MG Tab PO PRN ×2 (08:43→15:56)
[2021-10-14] MEDS ORDERED: Insulin Glarg,Human.Rec.Analog 100 Unit/ML SUBCUT SCH (09:00)
[2021-10-14] MEDS: Insulin Lispro 100 Units/ML 3 ML Vial SUBCUT SCH ×4 (10:10→20:48)
[2021-10-14 11:26] LABS: HEMOGLOBIN A1C 8.9 % (<5.7)
[2021-10-14] MEDS ORDERED: Ondansetron 4 MG/2 ML SDV IVPUSH ONE (13:15)
[2021-10-14] MEDS ORDERED: Levofloxacin/Dextrose 5%-Water 500 MG in Premix Bag 1 BAG IV SCH (14:00)
--- NOTE | 2021-10-14 18:48 | PN ---
DATE: 10/14/2021 SUBJECTIVE: The patient was seen today. She complains of pain in her back, lateral flanks, above her breasts, multiple pain complaints. She rates her pain 9/10, and she says that she has a history of drug abuse, and about 2 months ago, she overdosed with fentanyl. Her pain does not correlate with her labs, as her labs are improving, and does not correlate with pyelonephritis. SOCIAL HISTORY: She lives with her boyfriend. VITAL SIGNS TODAY: Temperature 98.5, pulse rate 96, blood pressure 100/65, respiratory rate 20, and oxygen saturation 99%. PHYSICAL EXAMINATION: Head: Atraumatic and normocephalic. Eyes: Pupils are equally reactive to light. Neck: Supple. No thyromegaly. No lymphadenopathy. Heart: S1 and S2. Regular rhythm and rate. No murmur. Lungs: Clear to auscultation, bilateral. Abdomen: Soft and nontender. Positive bowel sounds. Back: Costovertebral angle tenderness is positive, bilateral. Legs: No edema. Neurologic: She is alert and oriented x3. There are no gross focal neurologic deficits. LABORATORY DATA: Urine toxicology came positive for marijuana. Laboratory data today shows WBC 12.5, hemoglobin 10.3, and hematocrit 30.7; neutrophils 87.1 and lymphocytes 7.5. Sodium is 131; potassium 4.7; chloride 99; anion gap 21; BUN 21; creatinine 1.22; estimated creatinine clearance drug dosing is 56.95, improved from 37.57; estimated GFR 48; glucose 284 in the morning; and hemoglobin A1c was 8.9. Lactic acid 0.7. Calcium 7.7, phosphorus 3.6, and magnesium 2.1. Liver functions: Her albumin is 2.3, alkaline phosphatase 159, and ALT 11. Cholesterol: Triglycerides 147, cholesterol 116, LDL 66, and HDL 21. Microbiology: Her blood culture grew gram-negative rods, sensitivity to follow, and this was on aerobic bottle. ASSESSMENT AND PLAN: Pyelonephritis. We will increase levofloxacin to 750 mg IV q.24 hours, and also, the patient has gram-negative sepsis, and we will monitor the patient clinically, and we will monitor WBC and monitor for signs of fever, follow up blood culture and sensitivity. History of drug abuse. We will try to minimize the use of morphine and the use of opioids. For nausea, the patient will receive Zofran 4 mg p.o. q.4 hours p.r.n. For pain, oxycodone 5 mg p.o. q.4 hours p.r.n. and Tylenol 650 mg q.6 hours p.r.n. For diabetes mellitus, uncontrolled, we will discontinue Lantus daily, and we will start the patient on p.o. medication such as glipizide XL 2.5 mg p.o. b.i.d. For anemia, which is likely iron-deficiency anemia, we will also order a B12 level and iron studies, which will be altered now because of the acute infection. We will give the patient consistent carbohydrate diet. For back pain, the patient was given K-Pad heat therapy, and for neuropathy, the patient will be given gabapentin 300 mg p.o. b.i.d. For deep venous thrombosis prophylaxis, Lovenox 40 mg subcu daily, and for gastrointestinal prophylaxis, we will give the patient Pepcid 20 mg p.o. daily. [facility] /[id number]
[2021-10-14] MEDS: Gabapentin 300 MG Cap PO SCH (20:04)
[2021-10-14] MEDS ORDERED: LORazepam 1 MG Tab PO ONE (20:30)
[2021-10-14] MEDS: Lidocaine 5% 700 MG Patch TOP SCH (20:48)
[2021-10-14] MEDS ORDERED: Levofloxacin/Dextrose 5%-Water 750 MG in Premix Bag 1 BAG IV SCH (21:00)
[2021-10-15] MEDS ORDERED: Metoclopramide 10 MG/2 ML SDV IVPUSH ONE (00:52)
[2021-10-15] MEDS ORDERED: Sodium Chloride 0.9% 1,000 ML IV ONE ×2 (00:53→08:06)
[2021-10-15] MEDS: Acetaminophen 325 MG Tab PO PRN (01:00)
[2021-10-15] MEDS: Tamsulosin 0.4 MG Cap.ER PO SCH ×2 (01:05→08:22)
[2021-10-15] MEDS: Morphine 2 MG/ML SYRINGE IVPUSH PRN ×2 (01:08→21:56)
[2021-10-15] MEDS: Heparin Sodium 5,000 Units/ML Vial SUBCUT SCH ×2 (05:55→13:29)
[2021-10-15 06:08] LABS: ANION GAP 16.1 mEq/L (7-13)
[2021-10-15] MEDS ORDERED: cefTRIAXone 1 GM in Sodium Chloride 0.9% 50 ML IV SCH (08:00)
[2021-10-15] MEDS: Gabapentin 300 MG Cap PO SCH ×2 (08:22→21:37)
[2021-10-15] MEDS: Famotidine 20 MG Tab PO SCH (08:22)
[2021-10-15] MEDS: Enoxaparin 40 MG/0.4 ML Syringe SUBCUT SCH (08:23)
[2021-10-15] MEDS: Ferrous Sulfate 325 MG Tab PO SCH ×3 (08:42→16:42)
[2021-10-15] MEDS: Insulin Lispro 100 Units/ML 3 ML Vial SUBCUT SCH ×4 (08:43→21:27)
[2021-10-15] MEDS ORDERED: glipiZIDE 2.5 MG Tab.ER PO SCH (09:00)
[2021-10-15] MEDS ORDERED: Cyanocobalamin (Vitamin B12) 1,000 MCG Tab PO SCH (09:00)
[2021-10-15] MEDS ORDERED: Sodium Chloride 0.9% 10 ML Syringe FLUSH PRN (09:13)
[2021-10-15] MEDS: Ondansetron 4 MG Tab.DIS PO PRN ×2 (09:26→19:18)
[2021-10-15] MEDS ORDERED: Capsaicin 0.025% Crm 60 GM Tube TOP PRN (10:06)
[2021-10-15] MEDS ORDERED: Cyanocobalamin (Vitamin B12) 1,000 MCG/ML SDV SUBCUT ONE ×2 (10:10→12:00)
[2021-10-15] MEDS ORDERED: Metoclopramide 10 MG/2 ML SDV IVPUSH PRN (10:15)
[2021-10-15] MEDS: DULoxetine 30 MG Cap PO SCH (10:38)
[2021-10-15] MEDS: Vitamin B Complex Cap PO SCH (10:38)
[2021-10-15] MEDS: oxyCODONE 5 MG Tab PO PRN (10:57)
[2021-10-15] MEDS: Cefepime 1 GM in Sodium Chloride 0.9% 50 ML IV SCH ×2 (14:35→23:12)
[2021-10-15] MEDS ORDERED: Sodium Chloride 0.9% 1,000 ML IV SCH (14:45)
[2021-10-15] MEDS: Sodium Chloride 0.9% 1,000 ML IV SCH ×2 (16:40→23:11)
--- NOTE | 2021-10-15 21:01 | PN ---
DATE: 10/15/2021 SUBJECTIVE: The patient was seen today. She still complains of abdominal pain and nausea. Last night around 2 a.m., the patient had blood in the urine and pain, and she was started on Flomax 0.4 mg with concern of kidney stones. Today, her urine had some pinkish color in the toilet the color of the urine had pink tint, and the color was still yellow. The patient continued to complain during the day of having abdominal pain. Her test was negative. OBJECTIVE: Vital Signs: Today, her blood pressure is as follow. Pulse rate 114, blood pressure 85/44, respiratory rate 24, oxygen saturation 94. At 4 a.m., pulse 104, blood pressure 89/58, respiratory rate 20, oxygen 96. At 8 a.m., her temperature was 97, blood pressure 91/61, respiratory rate 20, and pulse oximetry 95. At 12 p.m., the patient had temperature 97.4, pulse rate 86, blood pressure 92/64 with a mean of 73, respiratory rate 20, and oxygen 94%. At 6 p.m., temperature 99.8, pulse rate 106, blood pressure 101/64 with a mean of 76, respiratory rate 18, and oxygen by pulse oximetry 95. HEENT: Her head is atraumatic, normocephalic. Pupils are reactive to light. Neck: Supple. No thyromegaly. No lymphadenopathy. Heart: S1 and S2. Regular rhythm and rate. No murmur. Lungs: Clear to auscultation bilaterally. Abdomen: Tender to palpation. Extremities: No edema. Neurologic: The patient is alert and oriented x3. There are no gross focal neurologic deficits. The patient also complains of having burning and tingling in her feet. LABORATORY DATA: Today, WBC 12.3, and yesterday WBC was 12.5. Hemoglobin was down to 9.5 from 10.3, platelet count 190. Neutrophils 81.2, high. Sodium 133, potassium 4.1, chloride 100, CO2 of 21, anion gap 16.1. BUN 14, creatinine 1.2, down from 1.22. Glucose 174 and calcium was 7.6. The patient had iron of 12, which is low; TIBC 126, low; percent saturation 6.8, low; triglycerides 147; cholesterol 116; LDL 66; HDL was 21; and vitamin B12 of 362. ASSESSMENT AND PLAN: 1. Gram-negative bacteremia, pyelonephritis. The patient's medication of levofloxacin was discontinued as her WBC did not change since yesterday, and she was started on cefepime adjusted to her kidney function 1 g q.12 hours. Follow up sensitivity and final results of the blood culture. 2. Regarding abdominal pain and nausea, this is likely due to cannabinoid use. 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 The patient tested positive for cannabinoids, and I discussed with her sister today, and she said that the patient smokes a lot of cannabis at home. As per sister, she was diagnosed in the past with lupus, and she is currently on no treatment for lupus. 3. Neuropathy. The patient will be continued with gabapentin 300 mg p.o. b.i.d., and she was started also on duloxetine 30 mg p.o. daily and capsaicin cream, apply on both feet every 6 hours. 4. For diabetes mellitus, uncontrolled, the patient was started yesterday on glipizide XL 2.5 mg b.i.d. Her blood sugar today in the afternoon went down to 70, so we will decrease her dose to only 2.5 mg p.o. daily, and we will continue to observe. Also, we will plan to get medical records [facility]. 5. For B12 deficiency, the patient was started on B12 1000 mg subcutaneous daily for 7 days and to be continued with 1000 mg subcutaneous q.2 weeks for a total of 1 month followed by B12 injection monthly. 6. For neuropathy, also she was given B complex vitamins. 7. Regarding deep venous thrombosis prophylaxis, the patient is on Lovenox 40 mg subcutaneously daily. 8. For gastrointestinal prophylaxis, she is on Pepcid 20 mg p.o. daily. 9. For iron-deficiency anemia, the patient was started on 325 mg iron p.o. 3 times a day. 10.For nausea, the patient will be given Reglan 10 mg IV push q.6 hours p.r.n. For nausea also, she has order for ondansetron 4 mg p.o. q.6 hours p.r.n. for nausea. 11.For pain control, she will be given Tylenol 650 mg q.6 hours p.r.n. for moderate pain. She has oxycodone 5 mg q.4 hours p.r.n. for pain and morphine 1 mg q.2 hours p.r.n. for severe pain between 7 and 10. [facility] /[id number]
[2021-10-15] MEDS: Lidocaine 5% 700 MG Patch TOP SCH (21:49)
[2021-10-16] MEDS: Acetaminophen 325 MG Tab PO PRN (03:01)
[2021-10-16] MEDS: Sodium Chloride 0.9% 1,000 ML IV SCH ×2 (06:01→13:44)
[2021-10-16] MEDS ORDERED: Cholecalciferol (Vitamin D3) 25 MCG Tab PO ONE (07:50)
[2021-10-16] MEDS ORDERED: glipiZIDE 2.5 MG Tab.ER PO SCH (08:00)
[2021-10-16] MEDS: Ondansetron 4 MG Tab.DIS PO PRN ×2 (08:18→16:23)
[2021-10-16] MEDS: Cefepime 1 GM in Sodium Chloride 0.9% 50 ML IV SCH (08:19)
[2021-10-16] MEDS: Tamsulosin 0.4 MG Cap.ER PO SCH (08:19)
[2021-10-16] MEDS: Enoxaparin 40 MG/0.4 ML Syringe SUBCUT SCH (08:20)
[2021-10-16] MEDS: Ferrous Sulfate 325 MG Tab PO SCH ×2 (08:20→11:44)
[2021-10-16] MEDS: DULoxetine 30 MG Cap PO SCH (08:20)
[2021-10-16] MEDS: Gabapentin 300 MG Cap PO SCH (08:20)
[2021-10-16] MEDS: Famotidine 20 MG Tab PO SCH (08:20)
[2021-10-16] MEDS: Vitamin B Complex Cap PO SCH (08:20)
[2021-10-16] MEDS: Insulin Lispro 100 Units/ML 3 ML Vial SUBCUT SCH ×2 (08:22→11:45)
[2021-10-16] MEDS ORDERED: Ergocalciferol (Vitamin D2) 1.25 MG Cap PO SCH (09:00)
[2021-10-16 09:41] LABS: ANION GAP 14.4 mEq/L (7-13); CHLORIDE,CL 103 mmol/L (98-107); SODIUM,NA 135 mmol/L (136-145)
[2021-10-16] MEDS ORDERED: Potassium Chloride 10 MEQ Tab.ER PO ONE (09:58)
--- NOTE | 2021-10-16 12:39 | US ---
PROCEDURE INFORMATION: Exam: US Retroperitoneal; Complete; Kidneys and Bladder Exam date and time: 10/16/2021 11:00 AM Age: 41 years old Clinical indication: Other: Hematuria, proteinura; Additional info: Hematuria , proteinuria TECHNIQUE: Imaging protocol: Real-time ultrasound of the retroperitoneum with image documentation. Complete exam focused on the kidneys and bladder. COMPARISON: CT Abdomen Pelvis wo Cont 10/13/2021 8:47 PM FINDINGS: Gallbladder: The patient is status post cholecystectomy. Right kidney: The right kidney measures 12.2 cm in length. There is no evidence of hydronephrosis or nephrolithiasis. The renal cortex is of normal thickness and echogenicity. Left kidney: The left kidney measures 11.3 cm in length. There is no evidence of hydronephrosis or nephrolithiasis. The renal cortex is of normal thickness . There is an ill-defined hypoechoic area within the lateral aspect of the left kidney measuring 2.1 x 1.9 cm. Intraperitoneal space: Minimal free fluid within the pelvis. Ovaries: Right ovarian cyst measuring 5.2 x 3.2 x 2.6 cm. Urinary bladder: Unremarkable. IMPRESSION: 1. There is an ill-defined hypoechoic area within the lateral aspect of the left kidney measuring 2.1 x 1.9 cm. Recommend MRI with and without contrast for further evaluation 2. Right ovarian cyst measuring 5.2 x 3.2 x 2.6 cm. 3. Minimal free fluid within the pelvis.
[2021-10-16] MEDS ORDERED: Lisinopril 5 MG Tab PO SCH (14:30)
[2021-10-16] MEDS ORDERED: Amitriptyline 25 MG Tab PO SCH (14:30)
--- NOTE | 2021-10-16 14:52 | US ---
PROCEDURE INFORMATION: Exam: US Duplex Artery and Vein of the Abdominal and/or Reproductive Organs. Complete Ovaries Exam date and time: 10/16/2021 1:47 PM Age: 41 years old Clinical indication: Pelvic pain; Additional info: Ovarian torsion TECHNIQUE: Imaging protocol: Real-time duplex ultrasound scan of the arterial and venous flow with color Doppler flow and spectral waveform analysis with image documentation. Complete duplex exam focused on the ovaries. Duplex exam was added to evaluate for torsion and other vascular conditions. COMPARISON: US Retroperitoneal Comp 10/16/2021 11:00 AM FINDINGS: Uterus: Uterus measures 9.4 x 4.1 x 5.4 cm. Right ovary/adnexa: Right ovary measures 4.8 x 3.7 x 4.8 cm. There is a right 3.8 x 4.7 cm cyst with central thickened septation with contiguous adjacent free fluid. Normal Doppler waveforms and color flow. Arterial flow however is greater in comparison to the left ovary. Left ovary/adnexa: The left ovary measures 1.9 x 1.3 x 2.8 cm. Normal duplex of the ovary. Normal Doppler waveforms and color flow. Arterial and venous flow are normal. No evidence of ovarian torsion. IMPRESSION: 1. 3.8 x 4.7 cm septated cyst with low level echoes possibly hemorrhagic cyst. Small amount of contiguous free fluid 2. Asymmetric right ovarian arterial flow in comparison to the left. Ovarian torsion is not completely excluded. Presence of underlying ovarian cyst creates diagnostic dilemma with increased arterial flow. Consider EXAMINATION GRADER referral.
--- NOTE | 2021-10-16 14:57 | US ---
PROCEDURE INFORMATION: Exam: US Pelvis, Transabdominal, Limited Exam date and time: 10/16/2021 1:47 PM Age: 41 years old Clinical indication: Pelvic pain; Additional info: Ovarian torsion TECHNIQUE: Imaging protocol: Real-time limited transabdominal pelvic ultrasound with image documentation. COMPARISON: CT Abdomen Pelvis wo Cont 10/13/2021 8:47 PM FINDINGS: Uterus: Uterus measures 9.4 x 4.1 x 5.4 cm. The endometrium measures 0.7 cm and appears unremarkable. Right ovary/adnexa: Right ovary measures 4.8 x 3.7 x 4.8 cm. There is a right 3.8 x 4.7 cm cyst better identified with transvaginal exam which demonstrates central thickened septation with contiguous adjacent free fluid Left ovary/adnexa: The left ovary measures 1.9 x 1.3 x 2.8 cm. IMPRESSION: 1. Right adnexal 3.8 x 4.7 cm cyst with thickened septation on transvaginal imaging. Small amount of contiguous free fluid. Transvaginal ultrasound demonstrated asymmetrically prominent arterial flow and torsion is not excluded.
[2021-10-16] MEDS ORDERED: Cefepime 1 GM in Sodium Chloride 0.9% 50 ML IV ONE (15:00)
--- NOTE | 2021-10-16 15:04 | US ---
PROCEDURE INFORMATION: Exam: US Pelvis, Transvaginal Exam date and time: 10/16/2021 1:47 PM Age: 41 years old Clinical indication: Pelvic pain; Additional info: Abdominal pain, R ovarian cyst, R/O torsion TECHNIQUE: Imaging protocol: Real-time transvaginal pelvic ultrasound with image documentation. Transvaginal imaging was used for better evaluation of the endometrium, adnexa, and/or cervix. COMPARISON: US RETROPERITONEAL 10/16/2021 11:00 AM, US DUPLEX ARTERIAL AND VENOUS PELVIC DUPLEX 10/16/2021 1:47 P.M. Uterus: Uterus measures 9.4 x 4.1 x 5.4 cm. Right ovary/adnexa: Right ovary measures 4.8 x 3.7 x 4.8 cm. There is a right 3.8 x 4.7 cm cyst with central thickened septation with contiguous adjacent free fluid. This exam is correlated with a previously interpreted ovarian duplex. Although Doppler waveforms and color flow appears unremarkable, right arterial flow however is greater in comparison to the left ovary. Left ovary/adnexa: The left ovary measures 1.9 x 1.3 x 2.8 cm. Normal duplex of the ovary. Normal Doppler waveforms and color flow. Arterial and venous flow are normal. No evidence of ovarian torsion. IMPRESSION: 1. Right 3.8 x 4.7 cm cyst (comparison ultrasounds confirm septated cyst with low level echoes) possibly hemorrhagic cyst. Small amount of contiguous free fluid 2. Asymmetric right ovarian arterial flow in comparison to the left. Ovarian torsion is not completely excluded. Presence of underlying ovarian cyst creates diagnostic dilemma with increased arterial flow. Consider DECK OFFICER referral.
[2021-10-16] MEDS: oxyCODONE 5 MG Tab PO PRN (15:17)
[2021-10-16 16:06] VITALS: BP 120/71; PULSE 80
[2021-10-16] MEDS: Morphine 2 MG/ML SYRINGE IVPUSH PRN (16:30)
--- NOTE | 2021-10-16 19:34 | DISCH ---
DISCHARGE DIAGNOSES: 1. Abdominal pain, severe, right lower quadrant, left lower quadrant, and suprapubic, also bilateral flank pain. 2. Intractable nausea. 3. Bacteremia with Escherichia coli. 4. Urinary tract infection. 5. Cystitis versus pyelonephritis. 6. Malnutrition. 7. Proteinuria. 8. Hematuria. 9. Anemia. 10.Iron deficiency anemia. 11.Diabetes mellitus, type 2, uncontrolled. HOSPITAL COURSE: A 41-year-old female with past medical history of pyelonephritis and stent placed at [place] 3 years ago in the right ureter, presented to emergency room on 10/13 due to abdominal pain and back pain. The patient had a CT of the abdomen done that was remarkable for hepatomegaly and patchy alveolar opacities in the lung bases bilaterally, suspicious for infectious pneumonia. No evidence of hydronephrosis or renal or ureteral calculi. Note that an inflammatory process such as pyelonephritis cannot be excluded on the basis of noncontrast study. The patient was started on antibiotics as in the emergency room she was found to have positive urinalysis. Her blood sugars were in 500 and she was given insulin Lantus and insulin on sliding scale initially and the patient's blood sugar improved. She had hypokalemia and was treated with potassium supplementation. She had also acute kidney insufficiency, which resolved with IV fluids and blood work done here. Microalbumin to creatinine ratio was 802, which showed microproteinuria and the patient was started on lisinopril 5 mg p.o. daily. The patient also complained of neuropathy /, and she was started on gabapentin 300 mg p.o. twice a day and was given capsaicin cream to apply every 6 hours and duloxetine 30 mg p.o. daily. For back pain, she was treated with lidocaine patch. For abdominal pain, she was given oxycodone 5 mg q. 6 hours p.r.n. for pain and morphine 1 mg q.2 hours p.r.n. for severe pain, also Tylenol 650 mg q.4 hours p.r.n. for pain. She continued to have pain and nausea despite treatment with analgesic and antinausea medication, and also, the patient had microscopic hematuria, trace of blood in her urine and she had further investigation with a renal bladder ultrasound study that was significant for renal and adnexal 3.8 x 4.7 cm cyst with thickened septation, and transvaginal retroperitoneal ultrasound showed there is ill-defined hypoechoic area within the lateral aspect of the left kidney measuring 2.1, 1.9 cm, recommended MRI with and without contrast for further evaluation. The right ovarian cyst measuring 5.2 x 3.2 x 2.6 cm, minimal fluid within the pelvis. The patient had a pelvis ultrasound, which showed right adnexal 3.8 x 4.7 cm cyst with a thickened septation. On transvaginal imaging, a small amount of contiguous free fluid. Transvaginal ultrasound demonstrated asymmetrical prominent arterial flow and torsion is not excluded. Doppler studies show asymmetric right ovarian arterial flow in comparison to the left, ovarian torsion is not completely excluded, presence of underlying ovarian cyst creates diagnostic dilemma with increased anterior flow. LABORATORY DATA: At admission, the patient's WBC was 12.9, hemoglobin 11.2, hematocrit 33.3, neutrophils 95.4, high, lymphocytes 2.5, low, monocytes 1.9, low, basophil 0.2. Sodium 126, potassium 3.4, chloride 90, carbon dioxide 22, anion gap 17.4, BUN 24, creatinine 1.33. Estimated creatinine clearance 37.57 and estimated GFR 30, glucose 530. Lactic acid 2.6, calcium 8.5, total bilirubin 0.3, AST 18, ALT 11, alkaline phosphatase 139, total protein 7.8, albumin 2.3, globulin 5.5, albumin/globulin ratio 0.42. Laboratory data at discharge, WBC 10, hemoglobin 9.5, hematocrit 28.9, and platelet count 198. Chemistry: Today her sodium 135, potassium 3.4, chloride 103, CO2 of 21, anion gap 14.4, BUN 7, and creatinine 0.97. Estimated creatinine clearance dosing 71.63. Glucose is 147, calcium 7.4, total bilirubin 0.3, AST 17, ALT 12, alkaline phosphatase 167, total protein 6.1, albumin 1.6, globulin 4.5. Uranalysis at admission on 10/13/2021, urine color was yellow, urine appearance cloudy, urine pH 5.5, urine specific gravity 1.025, urine protein more than 300, urine glucose 500, urine ketones negative, urine occult blood large, urine nitrites negative, urine bilirubin small, urobilinogen 0.2, urine leukocyte esterase trace, urine rbc more than 100, wbc more than 100. Urine epithelial cells, moderate. Urine bacteria moderate, urine mucus few. Urine random creatinine 19.03 on 10/16. Urine random microalbumin 152.6. Microalbumin to creatinine ratio was 802, which showed microproteinuria. Repeat urinalysis today on 10/16 showed dark yellow, cloudy, pH of 7, urine specific gravity 1.020, urine protein 100, high, urine glucose negative, urine ketone trace, urine occult blood large, urine nitrites negative, urine bilirubin negative, urine urobilinogen 1. Urine leukocyte esterase negative, urine rbc urine wbc 0 to 5, urine epithelial cells few, urine bacteria rare. Toxicology on 10/13/2021, urine toxicology was positive for marijuana. Influenza A and B was negative, and also a coronavirus screen was negative. The patient's report was discussed today with Dr. Borjas, OB/Gynecology at [facility] and she accepted the patient to be transferred to be evaluated by OB transaction processor for right ovarian possible torsion. PHYSICAL EXAMINATION: VITAL SIGNS: Today, she had temperature 98.3, pulse 87, blood pressure was 106/72, mean arterial blood pressure 83, respiratory rate 20, oxygen saturation 98%. Repeat blood pressure at 3 p.m. was 122/81. HEENT: The patient today has some mild cutaneous edema. Head is atraumatic, normocephalic. Pupils reactive to light. Mild palpebral edema. Neck: Supple. No thyromegaly. No lymphadenopathy. Heart: S1, S2. Regular rate and rate. Lungs: Clear to auscultation. Abdomen: Soft, tender to palpation in the right lower quadrant, left lower quadrant, suprapubic, also costovertebral angle tenderness was positive bilateral. Bowel sounds are positive in all 4 quadrants. No rebound. No guarding. Extremities: No edema. MEDICATION AT DISCHARGE: Patient was discharged from the hospital with she was discharged to [facility] with acetaminophen 650 mg p.o. q.4 hours, amitriptyline 50 mg p.o. at bedtime. She was given 1 dose around 4 p.m. to help her with pain, capsaicin 1 g topical q.6 hours p.r.n. for pain, cefepime 2 g q.12 hours, dextrose 50 mg IV push q.15 minutes p.r.n. for hypoglycemia, duloxetine 30 mg p.o. daily, ergocalciferol 1.25 mg p.o. daily, famotidine 20 mg p.o. daily, iron sulfate 325 mg p.o. t.i.d. scheduled half an hour before meals, Neurontin 300 mg p.o. b.i.d., glipizide XL 2.5 mg p.o. daily, Glucagon 1 mg IM q.15 minutes p.r.n. She received influenza virus vaccine. She is also on insulin lispro sliding scales with meals and bed. She also has lidocaine 5% 500 mg topical at bedtime, and she was started on lisinopril 5 mg p.o. daily for microproteinuria. For nausea, the patient is on metoclopramide 10 mg IV push q.6 hours. Also medication on discharge, morphine sulfate 1 mg IV push q.2 hours p.r.n. for severe pain between 7 and 10, ondansetron 4 mg p.o. q.6 hours p.r.n. for nausea, also ondansetron/Zofran 4 mg IV push q.6 hours p.r.n. for nausea, vomiting, oxycodone 5 mg p.o. q.4 hours p.r.n. for pain between 4 and 6. For insomnia, the patient is on temazepam 50 mg p.o. at bedtime, and for neuropathy, vitamin B complex 1 tablet p.o. daily. [facility] /[id number]
[2021-10-16] MEDS ORDERED: Cefepime 2 GM in Sodium Chloride 0.9% 50 ML IV SCH (21:00)
[2021-10-21 11:42] LABS: C.TRACHOMATIS BY TMA Negative (Negative); N.GONORRHOEAE BY TMA Negative (Negative)
== END 2021-10-16 16:40 | disposition other institution (70) | DRG 871 ==
LOC: DL.ED 19:18 → DL.MS 10-14 00:44 → EEVIPCON 10-14 00:44
PROVIDERS: ADMIT Internal Medicine; ATTEND Internal Medicine
DX: A41.51 Sepsis due to Escherichia coli [E. coli] (principal); J18.9 Pneumonia, unspecified organism; N30.01 Acute cystitis with hematuria; N12 Tubulo-interstitial nephritis, not specified as acute or chronic; E46 Unspecified protein-calorie malnutrition; N17.9 Acute kidney failure, unspecified; B96.20 Unspecified Escherichia coli [E. coli] as the cause of diseases classified elsewhere; E11.65 Type 2 diabetes mellitus with hyperglycemia; Z20.822 Contact with and (suspected) exposure to COVID-19; R11.2 Nausea with vomiting, unspecified; D50.9 Iron deficiency anemia, unspecified; E87.6 Hypokalemia; N83.201 Unspecified ovarian cyst, right side; E11.42 Type 2 diabetes mellitus with diabetic polyneuropathy; F12.90 Cannabis use, unspecified, uncomplicated; E53.8 Deficiency of other specified B group vitamins; Z86.16 Personal history of COVID-19; Z88.1 Allergy status to other antibiotic agents; Z88.0 Allergy status to penicillin; Z68.20 Body mass index [BMI] 20.0-20.9, adult
CPT/HCPCS: 0240U; 36415; 74176; 76770; 76830; 76857; 80048; 80053; 80061; 80305-QW; 81001; 82009; 82043; 82306; 82607; 82947; 83036; 83540; 83550; 83605; 83735; 84100; 84703; 85025; 85027; 87040; 87077; 87086; 87088; 87186; 87491; 87563; 87591; 93975; 96365; 96375; 99221; 99232; 99238; 99285-25; A9270-GY; J0692; J0696; J1644; J1650; J1815-GY; J1956; J2270; J2405; J2765; J3010; J3420; J3480; J7030

== ENCOUNTER 2022-03-12 20:15 | Inpatient (IN) | payer MEDICAID ==
[2022-03-12] MEDS ORDERED: Sodium Chloride 0.9% 1,000 ML IV ONE (20:32)
[2022-03-12] MEDS ORDERED: Ondansetron 4 MG/2 ML SDV IVPUSH ONE ×2 (20:37→23:11)
[2022-03-12] MEDS ORDERED: Morphine 2 MG/ML SYRINGE IVPUSH ONE ×2 (20:56→21:30)
[2022-03-12 21:14] LABS: ANION GAP 16.3 mEq/L (7-13)
[2022-03-12] MEDS ORDERED: Iopamidol 612 MG/ML 100 ML Bottle IVPUSH ONE (21:45)
[2022-03-12] MEDS ORDERED: Cefepime 2 GM in Sodium Chloride 0.9% 50 ML IV ONE (21:54)
[2022-03-12 22:00] LABS: AMPHETAMINES,URINE NEGATIVE (NEGATIVE); BARBITURATES,URINE NEGATIVE (NEGATIVE); BENZODIAZEPINE,URINE NEGATIVE (NEGATIVE); MDMA (ECSTASY), URINE NEGATIVE (NEGATIVE); METHADONE,URINE NEGATIVE (NEGATIVE); METHAMPHETAMINES,URINE NEGATIVE (NEGATIVE); OPIATES,URINE NEGATIVE (NEGATIVE); OXYCODONE,URINE NEGATIVE (NEGATIVE); PHENCYCLIDINE,URINE NEGATIVE (NEGATIVE); TCA,URINE NEGATIVE (NEGATIVE)
[2022-03-12] MEDS ORDERED: HYDROmorphone 1 MG/ML Syringe IVPUSH ONE (23:07)
[2022-03-12] MEDS ORDERED: Ondansetron 4 MG/2 ML SDV ONE (23:13)
[2022-03-12 23:40] LABS: CORONAVIRUS COVID-19 NAA NEGATIVE (NEGATIVE)
[2022-03-13] MEDS ORDERED: cefTRIAXone 1 GM in Sodium Chloride 0.9% 50 ML IV SCH (01:00)
[2022-03-13] MEDS ORDERED: oxyCODONE 5 MG Tab PO PRN (01:01)
[2022-03-13] MEDS ORDERED: Temazepam 15 MG Cap PO PRN (01:01)
[2022-03-13] MEDS ORDERED: 50% Dextrose in Water 50 ML Syringe IVPUSH PRN ×3 (01:10→10:00)
[2022-03-13] MEDS ORDERED: Acetaminophen 325 MG Tab PO PRN (01:12)
[2022-03-13] MEDS ORDERED: Docusate Sodium 100 MG Cap PO PRN (01:12)
[2022-03-13] MEDS: NS + KCl 20mEq/L 1,000 ML IV SCH ×2 (01:43→17:34)
[2022-03-13] MEDS: Morphine 2 MG/ML SYRINGE IVPUSH PRN ×2 (01:45→05:56)
[2022-03-13] MEDS: Ondansetron 4 MG/2 ML SDV IVPUSH PRN (05:24)
[2022-03-13] MEDS: Heparin Sodium 5,000 Units/ML Vial SUBCUT SCH ×3 (05:58→21:54)
[2022-03-13 06:03] LABS: ANION GAP 14.6 mEq/L (7-13); CHLORIDE,CL 96 mmol/L (98-107); SODIUM,NA 129 mmol/L (136-145)
[2022-03-13] MEDS ORDERED: Insulin Lispro 100 Units/ML 3 ML Vial SUBCUT SCH (08:00)
[2022-03-13] MEDS: Ciprofloxacin in D5W 400 MG in Premix Bag 1 BAG IV SCH ×4 (08:51→21:51)
[2022-03-13] MEDS: Insulin Lispro 100 Units/ML 3 ML Vial SUBCUT SCH ×4 (08:53→21:54)
[2022-03-13] MEDS: Bacitracin Oint 28.35 GM Tube TOP SCH ×3 (08:54→21:57)
[2022-03-13] MEDS ORDERED: DULoxetine 30 MG Cap PO SCH (09:00)
[2022-03-13] MEDS ORDERED: Gabapentin 300 MG Cap PO SCH (09:00)
[2022-03-13] MEDS ORDERED: Lisinopril 5 MG Tab PO SCH (09:00)
[2022-03-13] MEDS ORDERED: Famotidine 20 MG Tab PO SCH (09:00)
[2022-03-13] MEDS ORDERED: glipiZIDE 2.5 MG Tab.ER PO SCH (09:00)
[2022-03-13] MEDS ORDERED: Glucagon,Human Recombinant 1 MG Vial IM PRN (10:00)
[2022-03-13] MEDS: Insulin Glarg,Human.Rec.Analog 100 Unit/ML SUBCUT SCH (11:31)
[2022-03-13] MEDS: Acetaminophen/HYDROcodone 325-10 MG Tab PO PRN ×3 (12:45→22:07)
[2022-03-13] MEDS: Pantoprazole 40 MG Tab.CR PO SCH (12:45)
[2022-03-13] MEDS: DULoxetine 30 MG Cap PO SCH (17:36)
[2022-03-13] MEDS: Famotidine 20 MG Tab PO SCH (17:36)
[2022-03-13] MEDS: Gabapentin 100 MG Cap PO SCH ×2 (17:36→21:53)
[2022-03-13] MEDS: Ferrous Sulfate 325 MG Tab PO SCH (17:36)
[2022-03-13] MEDS ORDERED: Amitriptyline 25 MG Tab PO SCH (21:00)
[2022-03-13] MEDS: glipiZIDE 5 MG Tab.ER PO SCH (21:53)
[2022-03-14] MEDS: NS + KCl 20mEq/L 1,000 ML IV SCH ×3 (03:20→23:44)
[2022-03-14] MEDS: Heparin Sodium 5,000 Units/ML Vial SUBCUT SCH ×3 (06:03→21:41)
[2022-03-14] MEDS: Pantoprazole 40 MG Tab.CR PO SCH (06:03)
[2022-03-14 07:11] LABS: ANION GAP 12.1 mEq/L (7-13); CHLORIDE,CL 100 mmol/L (98-107); SODIUM,NA 132 mmol/L (136-145)
[2022-03-14] MEDS: Ciprofloxacin in D5W 400 MG in Premix Bag 1 BAG IV SCH ×4 (08:05→21:48)
[2022-03-14] MEDS: Ondansetron 4 MG/2 ML SDV IVPUSH PRN (08:11)
[2022-03-14] MEDS: Insulin Glarg,Human.Rec.Analog 100 Unit/ML SUBCUT SCH (08:13)
[2022-03-14] MEDS: Insulin Lispro 100 Units/ML 3 ML Vial SUBCUT SCH ×4 (08:14→21:38)
[2022-03-14] MEDS: glipiZIDE 5 MG Tab.ER PO SCH ×2 (08:17→21:42)
[2022-03-14] MEDS: DULoxetine 30 MG Cap PO SCH (08:17)
[2022-03-14] MEDS: Ferrous Sulfate 325 MG Tab PO SCH ×3 (08:17→17:22)
[2022-03-14] MEDS: Gabapentin 100 MG Cap PO SCH ×2 (08:18→21:42)
[2022-03-14] MEDS: Famotidine 20 MG Tab PO SCH (08:18)
[2022-03-14] MEDS: Acetaminophen/HYDROcodone 325-10 MG Tab PO PRN ×3 (08:25→21:42)
[2022-03-14] MEDS: Bacitracin Oint 28.35 GM Tube TOP SCH ×3 (12:34→21:46)
[2022-03-15] MEDS: Acetaminophen/HYDROcodone 325-10 MG Tab PO PRN ×4 (04:12→23:35)
[2022-03-15] MEDS: Pantoprazole 40 MG Tab.CR PO SCH (05:53)
[2022-03-15] MEDS: Heparin Sodium 5,000 Units/ML Vial SUBCUT SCH ×3 (05:54→21:51)
[2022-03-15 07:16] LABS: CHLORIDE,CL 101 mmol/L (98-107); SODIUM,NA 133 mmol/L (136-145)
[2022-03-15] MEDS: Insulin Glarg,Human.Rec.Analog 100 Unit/ML SUBCUT SCH (09:39)
[2022-03-15] MEDS: Insulin Lispro 100 Units/ML 3 ML Vial SUBCUT SCH ×4 (09:40→21:49)
[2022-03-15] MEDS: Ferrous Sulfate 325 MG Tab PO SCH ×3 (09:42→17:07)
[2022-03-15] MEDS: DULoxetine 30 MG Cap PO SCH (09:42)
[2022-03-15] MEDS: glipiZIDE 5 MG Tab.ER PO SCH ×2 (09:43→21:52)
[2022-03-15] MEDS: Famotidine 20 MG Tab PO SCH (09:43)
[2022-03-15] MEDS: Gabapentin 100 MG Cap PO SCH ×2 (09:43→21:52)
[2022-03-15] MEDS: Bacitracin Oint 28.35 GM Tube TOP SCH ×3 (09:44→21:53)
[2022-03-15] MEDS: Ciprofloxacin in D5W 400 MG in Premix Bag 1 BAG IV SCH ×4 (09:44→21:56)
[2022-03-15] MEDS: Ondansetron 4 MG/2 ML SDV IVPUSH PRN (17:20)
[2022-03-16 06:21] LABS: CHLORIDE,CL 101 mmol/L (98-107); SODIUM,NA 135 mmol/L (136-145)
[2022-03-16] MEDS: Heparin Sodium 5,000 Units/ML Vial SUBCUT SCH ×2 (06:44→15:17)
[2022-03-16] MEDS: Pantoprazole 40 MG Tab.CR PO SCH (06:45)
[2022-03-16] MEDS: Acetaminophen/HYDROcodone 325-10 MG Tab PO PRN ×2 (06:48→12:29)
[2022-03-16] MEDS: DULoxetine 30 MG Cap PO SCH (08:52)
[2022-03-16] MEDS: Ferrous Sulfate 325 MG Tab PO SCH ×2 (08:52→12:22)
[2022-03-16] MEDS: glipiZIDE 5 MG Tab.ER PO SCH (08:52)
[2022-03-16] MEDS: Insulin Lispro 100 Units/ML 3 ML Vial SUBCUT SCH ×2 (08:53→12:22)
[2022-03-16] MEDS: Famotidine 20 MG Tab PO SCH (08:53)
[2022-03-16] MEDS: Gabapentin 100 MG Cap PO SCH (08:53)
[2022-03-16] MEDS: Bacitracin Oint 28.35 GM Tube TOP SCH ×2 (08:54→15:17)
[2022-03-16] MEDS: Ciprofloxacin in D5W 400 MG in Premix Bag 1 BAG IV SCH ×2 (08:55)
[2022-03-16] MEDS: Insulin Glarg,Human.Rec.Analog 100 Unit/ML SUBCUT SCH (08:57)
[2022-03-16 13:31] VITALS: BP 104/61; PULSE 81
== END 2022-03-16 13:45 | disposition home or self-care (01) | DRG 872 ==
LOC: DL.ED 20:15 → DL.MS 23:36
PROVIDERS: ADMIT Internal Medicine; ATTEND Internal Medicine
DX: A41.51 Sepsis due to Escherichia coli [E. coli] (principal); E87.1 Hypo-osmolality and hyponatremia; N12 Tubulo-interstitial nephritis, not specified as acute or chronic; B96.20 Unspecified Escherichia coli [E. coli] as the cause of diseases classified elsewhere; E11.65 Type 2 diabetes mellitus with hyperglycemia; I10 Essential (primary) hypertension; Z20.822 Contact with and (suspected) exposure to COVID-19; E11.42 Type 2 diabetes mellitus with diabetic polyneuropathy; Z87.891 Personal history of nicotine dependence; Z79.4 Long term (current) use of insulin; Z86.16 Personal history of COVID-19; Z98.891 History of uterine scar from previous surgery; Z88.1 Allergy status to other antibiotic agents; Z88.8 Allergy status to other drugs, medicaments and biological substances; Z28.82 Immunization not carried out because of caregiver refusal
CPT/HCPCS: 0240U; 36415; 74177; 76770; 80048; 80053; 80305-QW; 81001; 81025; 82150; 82947; 83605; 83690; 85025; 87040; 87077; 87086; 87088; 87186; 96361; 96365; 96375; 96376; 99284; 99285-25; A9270-GY; J0692; J0744; J1170; J1644; J1815-GY; J2270; J2405; J3480; J7030; Q9967

== ENCOUNTER 2022-03-22 11:39 | Emergency (ER) | payer MEDICAID ==
[2022-03-22] MEDS ORDERED: Acetaminophen/HYDROcodone 325-10 MG Tab PO ONE (11:40)
[2022-03-22] MEDS ORDERED: HYDROmorphone 0.5 MG/0.5 ML Syringe IVPUSH ONE ×2 (11:58→13:24)
[2022-03-22 12:07] VITALS: BP 116/84; PULSE 79
[2022-03-22 12:39] LABS: ANION GAP 11.3 mEq/L (7-13); CHLORIDE,CL 100 mmol/L (98-107); SODIUM,NA 136 mmol/L (136-145)
[2022-03-22] MEDS ORDERED: Iopamidol 612 MG/ML 100 ML Bottle IVPUSH ONE (13:04)
[2022-03-22 13:19] LABS: MDMA (ECSTASY), URINE NEGATIVE (NEGATIVE); METHAMPHETAMINES,URINE POSITIVE (NEGATIVE)
[2022-03-22 13:20] LABS: AMPHETAMINES,URINE NEGATIVE (NEGATIVE); BARBITURATES,URINE NEGATIVE (NEGATIVE); BENZODIAZEPINE,URINE NEGATIVE (NEGATIVE); METHADONE,URINE NEGATIVE (NEGATIVE); OPIATES,URINE POSITIVE (NEGATIVE); OXYCODONE,URINE NEGATIVE (NEGATIVE); PHENCYCLIDINE,URINE NEGATIVE (NEGATIVE); TCA,URINE NEGATIVE (NEGATIVE)
[2022-03-22] MEDS ORDERED: Cephalexin 500 MG Cap PO ONE (13:46)
[2022-03-22] MEDS ORDERED: Acetaminophen/HYDROcodone 325-10 MG Tab ONE (13:50)
== END 2022-03-22 14:07 | disposition home or self-care (01) ==
LOC: DL.ED 11:39
DX: S22.31XA Fracture of one rib, right side, initial encounter for closed fracture (principal); S93.401A Sprain of unspecified ligament of right ankle, initial encounter; S00.83XA Contusion of other part of head, initial encounter; S00.03XA Contusion of scalp, initial encounter; L03.115 Cellulitis of right lower limb; E11.9 Type 2 diabetes mellitus without complications; Z86.16 Personal history of COVID-19; Z79.4 Long term (current) use of insulin; Z88.1 Allergy status to other antibiotic agents; Z88.8 Allergy status to other drugs, medicaments and biological substances; Z88.0 Allergy status to penicillin; Y04.0XXA Assault by unarmed brawl or fight, initial encounter
CPT/HCPCS: 36415; 70450; 70486; 71260; 72125; 73560; 73610; 74177; 80053; 80305; 80307; 81001; 81025; 83605; 85025; 96374; 96376; 99285; A9270; J1170; Q9967

== ENCOUNTER 2022-05-08 11:01 | Emergency (ER) | payer MEDICAID ==
[2022-05-08] MEDS ORDERED: Acetaminophen/HYDROcodone 325-10 MG Tab PO ONE (11:02)
[2022-05-08 11:21] VITALS: BP 126/95; PULSE 89
[2022-05-08 11:29] LABS: AMPHETAMINES,URINE NEGATIVE (NEGATIVE); BARBITURATES,URINE NEGATIVE (NEGATIVE); BENZODIAZEPINE,URINE NEGATIVE (NEGATIVE); MDMA (ECSTASY), URINE NEGATIVE (NEGATIVE); METHADONE,URINE NEGATIVE (NEGATIVE); METHAMPHETAMINES,URINE NEGATIVE (NEGATIVE); OPIATES,URINE NEGATIVE (NEGATIVE); OXYCODONE,URINE NEGATIVE (NEGATIVE); PHENCYCLIDINE,URINE NEGATIVE (NEGATIVE); TCA,URINE NEGATIVE (NEGATIVE)
[2022-05-08 12:04] LABS: ANION GAP 10.7 mEq/L (7-13); CHLORIDE,CL 103 mmol/L (98-107); SODIUM,NA 136 mmol/L (136-145)
[2022-05-08 12:10] LABS: ESTIMATED GFR 92 mL/min (>=60)
[2022-05-08] MEDS ORDERED: Acetaminophen/oxyCODONE 325-5 MG Tab PO ONE (12:55)
[2022-05-08] MEDS ORDERED: Acetaminophen/HYDROcodone 325-10 MG Tab ONE (13:30)
== END 2022-05-08 13:39 | disposition home or self-care (01) ==
LOC: DL.ED 11:01
DX: S22.080A Wedge compression fracture of T11-T12 vertebra, initial encounter for closed fracture (principal); R10.9 Unspecified abdominal pain; E10.9 Type 1 diabetes mellitus without complications; Z86.16 Personal history of COVID-19; Z88.1 Allergy status to other antibiotic agents; Z88.0 Allergy status to penicillin; Z88.8 Allergy status to other drugs, medicaments and biological substances; Z79.4 Long term (current) use of insulin; Y04.0XXA Assault by unarmed brawl or fight, initial encounter
CPT/HCPCS: 36415; 70486; 72128; 72131; 74176; 80053; 80305; 81001; 83605; 84703; 85025; 99284; A9270

== ENCOUNTER 2022-10-21 13:33 | Emergency (ER) | payer MEDICAID ==
[2022-10-21 13:30] VITALS: BP 130/86; PULSE 124
[~2022-10-21 13:33] MED LIST changes: -HYDROmorphone 1 MG/ML Syringe IVPUSH ONE; -Lactated Ringers 1,000 ML IV ONE; +Metoclopramide 10 MG/2 ML SDV IVPUSH ONE; -Ondansetron 4 MG/2 ML SDV IV ONE; +Sodium Chloride 0.9% 1,000 ML IV ONE; +Sodium Chloride 0.9% 10 ML Syringe FLUSH PRN
[2022-10-21 14:34] LABS: AMPHETAMINES,URINE NEGATIVE (NEGATIVE); BARBITURATES,URINE NEGATIVE (NEGATIVE); BENZODIAZEPINE,URINE NEGATIVE (NEGATIVE); MDMA (ECSTASY), URINE NEGATIVE (NEGATIVE); METHADONE,URINE NEGATIVE (NEGATIVE); METHAMPHETAMINES,URINE POSITIVE (NEGATIVE); OPIATES,URINE NEGATIVE (NEGATIVE); OXYCODONE,URINE NEGATIVE (NEGATIVE); PHENCYCLIDINE,URINE NEGATIVE (NEGATIVE); TCA,URINE NEGATIVE (NEGATIVE)
[2022-10-21 14:53] LABS: RESPIRATORY SYNCYTIAL VIR NAA NEGATIVE (NEGATIVE)
[2022-10-21 14:59] LABS: ANION GAP 10.7 mEq/L (7-13)
[2022-10-21 15:00] LABS: CORONAVIRUS COVID-19 NAA POSITIVE (NEGATIVE)
[2022-10-21] MEDS ORDERED: Iopamidol 612 MG/ML 100 ML Bottle IVPUSH ONE (15:16)
== END 2022-10-21 16:14 | disposition home or self-care (01) ==
LOC: DL.ED 13:33
DX: U07.1 COVID-19 (principal); F15.10 Other stimulant abuse, uncomplicated; R74.8 Abnormal levels of other serum enzymes; E11.9 Type 2 diabetes mellitus without complications; Z88.0 Allergy status to penicillin; Z88.1 Allergy status to other antibiotic agents; Z88.8 Allergy status to other drugs, medicaments and biological substances; Z79.4 Long term (current) use of insulin; Z86.16 Personal history of COVID-19
CPT/HCPCS: 0241U; 36415; 71045; 74177; 80053; 80305; 81001; 81025; 82150; 83605; 83690; 84484; 85025; 86140; 87040; 87491; 87563; 87591; 93005; 96361; 96374; 99285; J2765; J3490; J7030; Q9967; 82947

== ENCOUNTER 2023-03-07 18:03 | Emergency (ER) | payer MEDICAID ==
[2023-03-07 18:13] VITALS: BP 115/87; PULSE 126
== END 2023-03-07 18:53 | disposition home or self-care (01) ==
LOC: DL.ED 18:03
DX: S59.912A Unspecified injury of left forearm, initial encounter (principal); E11.9 Type 2 diabetes mellitus without complications; Z86.16 Personal history of COVID-19; Z88.1 Allergy status to other antibiotic agents; Z88.0 Allergy status to penicillin; Z88.8 Allergy status to other drugs, medicaments and biological substances; W10.8XXA Fall (on) (from) other stairs and steps, initial encounter
CPT/HCPCS: 73080-LT; 73090-LT; 99283

== ENCOUNTER 2023-03-10 20:32 | Emergency (ER) | payer MEDICAID ==
[2023-03-10] MEDS ORDERED: Sodium Chloride 0.9% 10 ML Syringe FLUSH PRN (20:44)
[2023-03-10 20:51] LABS: BASOPHILS PERCENT AUTO 0.4 % (0.0-1.0); HEMATOCRIT 40.4 % (37.0-47.0); HEMOGLOBIN 15.4 g/dL (12.0-16.0); LYMPHOCYTES PERCENT AUTO 35.7 % (20.5-50.1); MEAN CORPUSCULAR HEMOGLOBIN 32.4 pg (27.0-34.0); MEAN CORPUSCULAR HGB CONC 38.1 g/dL (33.0-35.0); MEAN CORPUSCULAR VOLUME 84.9 fL (80-100); MONOCYTES PERCENT AUTO 5.8 % (2-8); NEUTROPHILS PERCENT AUTO 58.1 % (42.2-75.2); PLATELET COUNT,PLT 277 10^3/uL (150-450); RED BLOOD CELL COUNT 4.76 10^6/uL (4.2-5.4); WHITE BLOOD CELL COUNT,WBC 5.6 10^3/uL (5.0-10.0)
[2023-03-10 20:52] LABS: APPEARANCE,URINE CLEAR (CLEAR); COLOR,URINE YELLOW (YELLOW); PH,URINE 5.5 (5.0-9.0)
[2023-03-10 20:53] LABS: BILIRUBIN,URINE NEGATIVE (NEGATIVE); GLUCOSE,URINE 500 (NEGATIVE); KETONES,URINE NEGATIVE (NEGATIVE); LEUKOCYTE ESTERASE,URINE NEGATIVE (NEGATIVE); NITRITE,URINE NEGATIVE (NEGATIVE); OCCULT BLOOD,URINE TRACE-INTACT (NEGATIVE); PROTEIN,URINE NEGATIVE (NEGATIVE); UROBILINOGEN,URINE 0.2 mg/dL (0.2-1.0)
[2023-03-10 20:58] LABS: AMPHETAMINES,URINE NEGATIVE (NEGATIVE); BARBITURATES,URINE NEGATIVE (NEGATIVE); BENZODIAZEPINE,URINE NEGATIVE (NEGATIVE); MDMA (ECSTASY), URINE NEGATIVE (NEGATIVE); METHADONE,URINE NEGATIVE (NEGATIVE); METHAMPHETAMINES,URINE NEGATIVE (NEGATIVE); OPIATES,URINE NEGATIVE (NEGATIVE); OXYCODONE,URINE NEGATIVE (NEGATIVE); PHENCYCLIDINE,URINE NEGATIVE (NEGATIVE); TCA,URINE NEGATIVE (NEGATIVE)
[2023-03-10 21:06] LABS: BACTERIA,URINE NOT SEEN /HPF (0-FEW/HPF); EPITHELIAL CELLS,URINE RARE /HPF (NOT SEEN); RBC,URINE 0-5 /HPF (0-5); WBC,URINE 0-5 /HPF (0-5/HPF)
[2023-03-10 21:07] LABS: HCG QUALITATIVE,SERUM NEGATIVE (NEGATIVE)
[2023-03-10 21:08] LABS: INR 0.9 (0.9-1.2); PTT,PARTIAL THROMBOPLSTIN TIME 23.4 SEC (22.0-34.0)
[2023-03-10 21:09] VITALS: BP 143/102; PULSE 118
[2023-03-10 21:10] LABS: A/G RATIO 0.8; ALANINE AMINOTRANSFERASE,ALT 30 U/L (14-59); ALBUMIN 3.6 g/dL (3.4-5.0); ALKALINE PHOSPHATASE 130 U/L (46-116); ANION GAP 15.3 mEq/L (7-13); ASPARTATE AMNIOTRANSFERASE,AST 28 U/L (15-37); BILIRUBIN TOTAL 0.2 mg/dL (0.2-1.0); BLOOD UREA NITROGEN,BUN 10 mg/dL (7-18); BUN/CREATININE RATIO 10.2 (No establ ref range); CALCIUM 9.1 mg/dL (8.5-10.1); CARBON DIOXIDE,CO2 24 mmol/L (21-32); CHLORIDE,CL 106 mmol/L (98-107); CREATININE 0.98 mg/dL (0.55-1.02); ESTIMATED GFR 73 mL/min (>=60); ETHANOL BLOOD MEDICAL 210 mg/dL (0); GLUCOSE RANDOM 340 mg/dL (70-99); POTASSIUM,K 3.3 mmol/L (3.5-5.1); PROTEIN TOTAL,TP 8.3 g/dL (6.4-8.2); SODIUM,NA 142 mmol/L (136-145)
[2023-03-10] MEDS ORDERED: Iopamidol 612 MG/ML 100 ML Bottle IVPUSH ONE (21:24)
[2023-03-10] MEDS ORDERED: Sodium Chloride 0.9% 1,000 ML IV ONE (21:35)
[2023-03-10] MEDS ORDERED: Diphtheria,Pertussis(Acell),Tetanus Vaccine 0.5 ML Syringe IM ONE (22:45)
== END 2023-03-10 23:27 | disposition home or self-care (01) ==
LOC: DL.ED 20:32
DX: S02.2XXA Fracture of nasal bones, initial encounter for closed fracture (principal); S01.511A Laceration without foreign body of lip, initial encounter; S30.1XXA Contusion of abdominal wall, initial encounter; S30.0XXA Contusion of lower back and pelvis, initial encounter; S80.10XA Contusion of unspecified lower leg, initial encounter; E11.65 Type 2 diabetes mellitus with hyperglycemia; F10.920 Alcohol use, unspecified with intoxication, uncomplicated; Z72.0 Tobacco use; Z86.16 Personal history of COVID-19; Z88.0 Allergy status to penicillin; Z88.1 Allergy status to other antibiotic agents; Y04.0XXA Assault by unarmed brawl or fight, initial encounter
CPT/HCPCS: 12011; 36415; 70450; 71260; 72125; 74177; 80053; 80305; 80307; 81001; 84703; 85025; 85610; 85730; 90471; 90715; 99284; J7030; Q9967; J3490

== ENCOUNTER 2024-02-18 18:30 | Emergency (ER) | payer MEDICAID ==
[2024-02-18 18:40] LABS: APPEARANCE,URINE CLEAR (CLEAR); BILIRUBIN,URINE NEGATIVE (NEGATIVE); COLOR,URINE YELLOW (YELLOW); GLUCOSE,URINE 500 (NEGATIVE); KETONES,URINE NEGATIVE (NEGATIVE); LEUKOCYTE ESTERASE,URINE NEGATIVE (NEGATIVE); NITRITE,URINE NEGATIVE (NEGATIVE); OCCULT BLOOD,URINE TRACE-INTACT (NEGATIVE); PROTEIN,URINE 100 (NEGATIVE)
[2024-02-18 18:45] LABS: AMPHETAMINES,URINE NEGATIVE (NEGATIVE); BARBITURATES,URINE NEGATIVE (NEGATIVE); BENZODIAZEPINE,URINE NEGATIVE (NEGATIVE); MDMA (ECSTASY), URINE NEGATIVE (NEGATIVE); METHADONE,URINE NEGATIVE (NEGATIVE); METHAMPHETAMINES,URINE NEGATIVE (NEGATIVE); OPIATES,URINE NEGATIVE (NEGATIVE); OXYCODONE,URINE NEGATIVE (NEGATIVE); PHENCYCLIDINE,URINE NEGATIVE (NEGATIVE); TCA,URINE NEGATIVE (NEGATIVE)
[2024-02-18] MEDS: Acetaminophen 500 MG Tab PO ONE (18:46)
[2024-02-18] MEDS: Ibuprofen 600 MG Tab PO ONE (18:46)
[2024-02-18 18:49] LABS: BACTERIA,URINE RARE /HPF (0-FEW/HPF); EPITHELIAL CELLS,URINE OCCASIONAL /HPF (NOT SEEN); MUCUS,URINE RARE /LPF (NOT SEEN); RBC,URINE 0-5 /HPF (0-5); WBC,URINE 0-5 /HPF (0-5/HPF)
[2024-02-18] MEDS: Sodium Chloride 0.9% 1,000 ML IV ONE (19:17)
[2024-02-18 19:20] LABS: HEMATOCRIT 39.4 % (37.0-47.0); HEMOGLOBIN 13.7 g/dL (12.0-16.0); MEAN CORPUSCULAR HEMOGLOBIN 29.8 pg (27.0-34.0); MEAN CORPUSCULAR HGB CONC 34.8 g/dL (33.0-35.0); MEAN CORPUSCULAR VOLUME 85.8 fL (80-100); PLATELET COUNT,PLT 207 10^3/uL (150-450); RED BLOOD CELL COUNT 4.59 10^6/uL (4.2-5.4); WHITE BLOOD CELL COUNT,WBC 3.3 10^3/uL (5.0-10.0)
[2024-02-18] MEDS: Sodium Chloride 0.9% 10 ML Syringe FLUSH PRN (19:23)
[2024-02-18 19:25] LABS: BASOPHILS PERCENT AUTO 0.3 % (0.0-1.0); LYMPHOCYTES PERCENT AUTO 12.4 % (20.5-50.1); MONOCYTES PERCENT AUTO 6.6 % (2-8); NEUTROPHILS PERCENT AUTO 80.7 % (42.2-75.2)
[2024-02-18 19:38] LABS: BAND PERCENT MAN 3 %; LYMPHOCYTES PERCENT MAN 11 % (20-50); METAMYELOCYTE PERCENT MAN 2; MONOCYTES PERCENT MAN 6 % (2-8); SEG NEUTROPHILS PERCENT MAN 78 % (42-75)
[2024-02-18 19:39] LABS: A/G RATIO 0.7; ALBUMIN 3.4 g/dL (3.4-5.0); ANION GAP 13.6 mEq/L (7-13); BILIRUBIN TOTAL 0.7 mg/dL (0.2-1.0); BUN/CREATININE RATIO 11.8 (No establ ref range); CALCIUM 8.7 mg/dL (8.5-10.1); CREATININE 0.93 mg/dL (0.55-1.02); EST CRCL DRUG DOSING (CG) 69.46 mL/min; POTASSIUM,K 4.6 mmol/L (3.5-5.1); PROTEIN TOTAL,TP 8.6 g/dL (6.4-8.2)
[2024-02-18] MEDS: Take Home: Ciprofloxacin HCl 500 MG, 6 Tab Pack PO ONE (20:25)
[2024-02-18 20:30] VITALS: BP 97/70; PULSE 94
== END 2024-02-18 20:31 | disposition home or self-care (01) ==
LOC: DL.ED 18:30
DX: N30.01 Acute cystitis with hematuria (principal); E11.9 Type 2 diabetes mellitus without complications; Z79.4 Long term (current) use of insulin; Z88.8 Allergy status to other drugs, medicaments and biological substances; Z88.1 Allergy status to other antibiotic agents; Z88.5 Allergy status to narcotic agent; Z86.16 Personal history of COVID-19
CPT/HCPCS: 36415; 80053; 80305-QW; 81001; 81025; 85025; 99283; 99284; A9270-GY; J3490; J7030

== ENCOUNTER 2024-08-08 12:31 | Emergency (ER) | payer MEDICAID ==
[~2024-08-08 12:31] MED LIST changes: -Metoclopramide 10 MG/2 ML SDV IVPUSH ONE; -Sodium Chloride 0.9% 1,000 ML IV ONE
[2024-08-08 13:10] LABS: BASOPHILS PERCENT AUTO 0.4 % (0.0-1.0); HEMATOCRIT 37.6 % (37.0-47.0); HEMOGLOBIN 13.1 g/dL (12.0-16.0); LYMPHOCYTES PERCENT AUTO 35.5 % (20.5-50.1); MEAN CORPUSCULAR HEMOGLOBIN 29.8 pg (27.0-34.0); MEAN CORPUSCULAR HGB CONC 34.8 g/dL (33.0-35.0); MEAN CORPUSCULAR VOLUME 85.5 fL (80-100); MONOCYTES PERCENT AUTO 9.2 % (2-8); NEUTROPHILS PERCENT AUTO 54.9 % (42.2-75.2); PLATELET COUNT,PLT 234 10^3/uL (150-450); WHITE BLOOD CELL COUNT,WBC 5.1 10^3/uL (5.0-10.0)
[2024-08-08 13:29] LABS: B-TYPE NATRIURETIC PEPTIDE,BNP 11 pg/ml (0-100); INR 0.9 (0.9-1.2); PROTHROMBIN TIME 9.5 SEC (9.0-12.0); PTT,PARTIAL THROMBOPLSTIN TIME 22.8 SEC (22.0-34.0)
[2024-08-08 13:32] VITALS: BP 133/90; PULSE 104
[2024-08-08 13:32] LABS: A/G RATIO 0.8; ALANINE AMINOTRANSFERASE,ALT 26 U/L (14-59); ALBUMIN 3.9 g/dL (3.4-5.0); ALKALINE PHOSPHATASE 109 U/L (46-116); ANION GAP 14.9 mEq/L (7-13); ASPARTATE AMNIOTRANSFERASE,AST 19 U/L (15-37); BILIRUBIN TOTAL 0.8 mg/dL (0.2-1.0); BLOOD UREA NITROGEN,BUN 16 mg/dL (7-18); BUN/CREATININE RATIO 15.5 (No establ ref range); CALCIUM 8.9 mg/dL (8.5-10.1); CARBON DIOXIDE,CO2 24 mmol/L (21-32); CHLORIDE,CL 98 mmol/L (98-107); CREATININE 1.03 mg/dL (0.55-1.02); LIPASE 29 U/L (16-77); MAGNESIUM 2.2 mg/dL (1.8-2.4); POTASSIUM,K 3.9 mmol/L (3.5-5.1); PROTEIN TOTAL,TP 8.9 g/dL (6.4-8.2); SODIUM,NA 133 mmol/L (136-145)
[2024-08-08 13:36] LABS: ESTIMATED GFR 68 mL/min (>=60)
[2024-08-08 13:37] LABS: GLUCOSE RANDOM 416 mg/dL (70-99)
[2024-08-08] MEDS: Lactated Ringers 1,000 ML IV SCH (14:00)
== END 2024-08-08 14:31 | disposition home or self-care (01) ==
LOC: DL.ED 12:31
DX: M94.0 Chondrocostal junction syndrome [Tietze] (principal); R11.2 Nausea with vomiting, unspecified; E11.65 Type 2 diabetes mellitus with hyperglycemia; Z86.16 Personal history of COVID-19; Z88.1 Allergy status to other antibiotic agents; Z88.8 Allergy status to other drugs, medicaments and biological substances; Z88.5 Allergy status to narcotic agent
CPT/HCPCS: 36415; 71045; 80053; 80307; 83690; 83735; 83880; 84484; 85025; 85610; 85730; 87635; 87804; 93005; 99285; J7120; U0002

== ENCOUNTER 2025-04-03 22:30 | Emergency (ER) | payer MEDICAID ==
[2025-04-03 23:26] LABS: BASOPHILS PERCENT AUTO 0.1 % (0.0-1.0); HEMATOCRIT 31.6 % (37.0-47.0); HEMOGLOBIN 11.1 g/dL (12.0-16.0); LYMPHOCYTES PERCENT AUTO 10.3 % (20.5-50.1); MEAN CORPUSCULAR HEMOGLOBIN 30.6 pg (27.0-34.0); MEAN CORPUSCULAR HGB CONC 35.1 g/dL (33.0-35.0); MEAN CORPUSCULAR VOLUME 87.1 fL (80-100); MONOCYTES PERCENT AUTO 8.6 % (2-8); PLATELET COUNT,PLT 154 10^3/uL (150-450); RED BLOOD CELL COUNT 3.63 10^6/uL (4.2-5.4); WHITE BLOOD CELL COUNT,WBC 9.3 10^3/uL (5.0-10.0)
[2025-04-03] MEDS: Sodium Chloride 0.9% 1,000 ML IV ONE (23:35)
[2025-04-03] MEDS: Ondansetron 4 MG/2 ML SDV IVPUSH ONE (23:35)
[2025-04-03] MEDS: Morphine 4 MG/ML Syringe ONE (23:35)
[2025-04-03] MEDS: Morphine 4 MG/ML VIAL IVPUSH ONE (23:47)
[2025-04-03 23:50] LABS: LACTIC ACID 1.1 mmol/L (0.4-2.0)
[2025-04-03 23:56] LABS: ALANINE AMINOTRANSFERASE,ALT 27 U/L (14-59); ALBUMIN 2.1 g/dL (3.4-5.0); ALKALINE PHOSPHATASE 267 U/L (46-116); ASPARTATE AMNIOTRANSFERASE,AST 20 U/L (15-37); BILIRUBIN TOTAL 0.4 mg/dL (0.2-1.0); BLOOD UREA NITROGEN,BUN 13 mg/dL (7-18); CARBON DIOXIDE,CO2 22 mmol/L (21-32); CREATININE 1.08 mg/dL (0.55-1.02); LIPASE 33 U/L (16-77); MAGNESIUM 1.5 mg/dL (1.8-2.4); POTASSIUM,K 3.3 mmol/L (3.5-5.1); PROTEIN TOTAL,TP 6.8 g/dL (6.4-8.2); TSH ULTRASENSITIVE 1.22 uIU/mL (0.36-3.74)
[2025-04-04] LABS: A/G RATIO 0.45; ESTIMATED GFR 65 mL/min (>=60); ETHANOL BLOOD MEDICAL < 3 mg/dL (0); SODIUM,NA 130 mmol/L (136-145)
[2025-04-04 00:01] LABS: ANION GAP 14.3 mEq/L (7-13); CHLORIDE,CL 97 mmol/L (98-107)
[2025-04-04 00:02] LABS: GLUCOSE RANDOM 523 mg/dL (70-99)
[2025-04-04] MEDS ORDERED: Glucagon,Human Recombinant 1 MG Vial IM PRN (00:31)
[2025-04-04] MEDS ORDERED: 50% Dextrose in Water 50 ML Syringe IVPUSH PRN (00:31)
[2025-04-04] MEDS: Magnesium Sulfate 2 GM/50 mL 2 GM in Premix Bag 1 BAG IV ONE (00:34)
[2025-04-04] MEDS: Sodium Chloride 0.9% 1,000 ML IV ONE ×2 (00:34→02:37)
[2025-04-04] MEDS: Insulin Regular, Human 100 Units/ML 10 ML Vial IV ONE (00:35)
[2025-04-04 02:04] LABS: APPEARANCE,URINE SLIGHTLY CLOUDY (CLEAR); BILIRUBIN,URINE NEGATIVE (NEGATIVE); COLOR,URINE YELLOW (YELLOW); GLUCOSE,URINE 500 (NEGATIVE); KETONES,URINE NEGATIVE (NEGATIVE); LEUKOCYTE ESTERASE,URINE NEGATIVE (NEGATIVE); NITRITE,URINE NEGATIVE (NEGATIVE); OCCULT BLOOD,URINE MODERATE (NEGATIVE); PROTEIN,URINE 30 (NEGATIVE)
[2025-04-04 02:07] LABS: AMPHETAMINES,URINE NEGATIVE (NEGATIVE); BARBITURATES,URINE NEGATIVE (NEGATIVE); BENZODIAZEPINE,URINE NEGATIVE (NEGATIVE); MDMA (ECSTASY), URINE NEGATIVE (NEGATIVE); METHADONE,URINE NEGATIVE (NEGATIVE); METHAMPHETAMINES,URINE POSITIVE (NEGATIVE); OPIATES,URINE POSITIVE (NEGATIVE); OXYCODONE,URINE NEGATIVE (NEGATIVE); PHENCYCLIDINE,URINE NEGATIVE (NEGATIVE); TCA,URINE NEGATIVE (NEGATIVE)
[2025-04-04 02:14] LABS: BACTERIA,URINE FEW /HPF (0-FEW/HPF); EPITHELIAL CELLS,URINE FEW /HPF (NOT SEEN); RBC,URINE 30-40 /HPF (0-5)
[2025-04-04] MEDS ORDERED: metFORMIN 500 MG Tab PO ONE (02:15)
[2025-04-04] MEDS: cefTRIAXone 1 GM Vial IVPUSH ONE (02:38)
[2025-04-04] MEDS: Azithromycin 250 MG Tab PO ONE (02:38)
[2025-04-04 05:32] VITALS: BP 95/66; PULSE 101
== END 2025-04-04 05:32 | disposition home or self-care (01) ==
LOC: DL.ED 22:30
DX: J18.9 Pneumonia, unspecified organism (principal); E11.65 Type 2 diabetes mellitus with hyperglycemia; F15.10 Other stimulant abuse, uncomplicated; E87.1 Hypo-osmolality and hyponatremia; Z88.8 Allergy status to other drugs, medicaments and biological substances; Z88.1 Allergy status to other antibiotic agents; Z88.5 Allergy status to narcotic agent; Z86.16 Personal history of COVID-19
CPT/HCPCS: 36415; 71045; 80053; 80305; 80307; 81001; 81025; 82947; 83605; 83690; 83735; 84443; 84484; 85025; 87040; 87077; 87186; 93005; 93010; 96361; 96365; 96375; 99284; 99285; A9270; J0696; J2270; J2405; J3475; J7030

== ENCOUNTER 2025-04-04 14:55 | Emergency (ER) | payer MEDICAID ==
[2025-04-04] MEDS ORDERED: Sodium Chloride 0.9% 10 ML Syringe FLUSH PRN (15:03)
[2025-04-04 15:14] LABS: APPEARANCE,URINE CLEAR (CLEAR); BILIRUBIN,URINE NEGATIVE (NEGATIVE); COLOR,URINE YELLOW (YELLOW); GLUCOSE,URINE 500 (NEGATIVE); KETONES,URINE TRACE (NEGATIVE); LEUKOCYTE ESTERASE,URINE NEGATIVE (NEGATIVE); NITRITE,URINE NEGATIVE (NEGATIVE); OCCULT BLOOD,URINE MODERATE (NEGATIVE); PH,URINE 6.5 (5.0-9.0); PROTEIN,URINE 100 (NEGATIVE); UROBILINOGEN,URINE >=8.0 mg/dL (0.2-1.0)
[2025-04-04] MEDS: HYDROmorphone 1 MG/ML Syringe IVPUSH ONE ×2 (15:14→17:07)
[2025-04-04 15:16] LABS: HEMOGLOBIN 12.2 g/dL (12.0-16.0); MEAN CORPUSCULAR HGB CONC 34.9 g/dL (33.0-35.0); MEAN CORPUSCULAR VOLUME 86.2 fL (80-100); PLATELET COUNT,PLT 126 10^3/uL (150-450); RED BLOOD CELL COUNT 4.06 10^6/uL (4.2-5.4); WHITE BLOOD CELL COUNT,WBC 13.8 10^3/uL (5.0-10.0)
[2025-04-04 15:21] LABS: AMPHETAMINES,URINE NEGATIVE (NEGATIVE); BARBITURATES,URINE NEGATIVE (NEGATIVE); BENZODIAZEPINE,URINE NEGATIVE (NEGATIVE); MDMA (ECSTASY), URINE NEGATIVE (NEGATIVE); METHADONE,URINE NEGATIVE (NEGATIVE); METHAMPHETAMINES,URINE POSITIVE (NEGATIVE); OPIATES,URINE POSITIVE (NEGATIVE); OXYCODONE,URINE NEGATIVE (NEGATIVE); PHENCYCLIDINE,URINE NEGATIVE (NEGATIVE); TCA,URINE NEGATIVE (NEGATIVE)
[2025-04-04 15:22] LABS: BASOPHILS PERCENT AUTO 0.1 % (0.0-1.0); LYMPHOCYTES PERCENT AUTO 9.4 % (20.5-50.1); MONOCYTES PERCENT AUTO 5.7 % (2-8); NEUTROPHILS PERCENT AUTO 83.8 % (42.2-75.2)
[2025-04-04 15:23] LABS: RBC,URINE 30-40 /HPF (0-5); WBC,URINE 0-5 /HPF (0-5/HPF)
[2025-04-04] MEDS: Sodium Chloride 0.9% 1,000 ML IV ONE (15:23)
[2025-04-04 15:24] LABS: AMORPHOUS SEDIMENT,URINE RARE /HPF (NOT SEEN); BACTERIA,URINE FEW /HPF (0-FEW/HPF); EPITHELIAL CELLS,URINE RARE /HPF (NOT SEEN); MUCUS,URINE FEW /LPF (NOT SEEN)
[2025-04-04 15:29] LABS: INR 0.9 (0.9-1.2); PROTHROMBIN TIME 9.4 SEC (9.0-12.0); PTT,PARTIAL THROMBOPLSTIN TIME 20.7 SEC (22.0-34.0)
[2025-04-04 15:32] LABS: ALANINE AMINOTRANSFERASE,ALT 35 U/L (14-59); ALBUMIN 2.3 g/dL (3.4-5.0); ALKALINE PHOSPHATASE 284 U/L (46-116); ANION GAP 14.6 mEq/L (7-13); ASPARTATE AMNIOTRANSFERASE,AST 28 U/L (15-37); BILIRUBIN TOTAL 0.5 mg/dL (0.2-1.0); BLOOD UREA NITROGEN,BUN 6 mg/dL (7-18); BUN/CREATININE RATIO 7.4 (No establ ref range); C-REACTIVE PROTEIN 23.38 ng/dL (<=0.50); CARBON DIOXIDE,CO2 22 mmol/L (21-32); CHLORIDE,CL 100 mmol/L (98-107); CREATININE 0.81 mg/dL (0.55-1.02); GLUCOSE RANDOM 163 mg/dL (70-99); MAGNESIUM 1.6 mg/dL (1.8-2.4); POTASSIUM,K 3.6 mmol/L (3.5-5.1); PROTEIN TOTAL,TP 7.5 g/dL (6.4-8.2); SODIUM,NA 133 mmol/L (136-145)
[2025-04-04 15:35] LABS: LACTIC ACID 1.2 mmol/L (0.4-2.0)
[2025-04-04 15:37] LABS: A/G RATIO 0.44; ESTIMATED GFR 91 mL/min (>=60)
[2025-04-04] MEDS: Albuterol/Ipratropium 3.0-0.5 MG/3 ML Neb Soln NEB ONE (15:49)
[2025-04-04 15:50] LABS: LYMPHOCYTES PERCENT MAN 13 % (20-50); MONOCYTES PERCENT MAN 4 % (2-8); SEG NEUTROPHILS PERCENT MAN 83 % (42-75)
[2025-04-04] MEDS: Acetaminophen 500 MG Tab PO ONE (16:37)
[2025-04-04 16:41] VITALS: BP 129/76; PULSE 132
== END 2025-04-04 17:19 ==
LOC: DL.ED 14:55
DX: J18.9 Pneumonia, unspecified organism (principal); F15.10 Other stimulant abuse, uncomplicated; E11.65 Type 2 diabetes mellitus with hyperglycemia; Z88.5 Allergy status to narcotic agent; Z88.1 Allergy status to other antibiotic agents; Z88.8 Allergy status to other drugs, medicaments and biological substances; Z86.16 Personal history of COVID-19; E87.1 Hypo-osmolality and hyponatremia
CPT/HCPCS: 36415; 71045; 80053; 80305-QW; 80307; 81001; 81025; 82947; 83605; 83690; 83735; 84443; 84484; 85025; 85610; 85730; 86140; 87040; 87077; 87186; 93005; 93010; 96361; 96365; 96375; 99284; 99285; 99285-25; A9270-GY; J0696; J1171; J2020; J2270; J2405; J3475; J7030

== ENCOUNTER 2025-05-02 23:16 | Emergency (ER) | payer MEDICAID ==
[2025-05-02] MEDS ORDERED: Sodium Chloride 0.9% 10 ML Syringe FLUSH PRN (23:36)
[2025-05-02 23:48] LABS: BASOPHILS PERCENT AUTO 0.5 % (0.0-1.0); EOSINOPHILS PERCENT AUTO 0.0 % (1.0-3.0); LYMPHOCYTES PERCENT AUTO 54.3 % (20.5-50.1); MONOCYTES PERCENT AUTO 9.1 % (2-8); NEUTROPHILS PERCENT AUTO 36.1 % (42.2-75.2); PLATELET COUNT,PLT 241 10^3/uL (150-450); RED BLOOD CELL COUNT 3.39 10^6/uL (4.2-5.4); WHITE BLOOD CELL COUNT,WBC 6.6 10^3/uL (5.0-10.0)
[2025-05-02 23:59] LABS: LACTIC ACID 0.8 mmol/L (0.4-2.0)
[2025-05-03 01:52] LABS: ALANINE AMINOTRANSFERASE,ALT 22.0 U/L (14-59); ASPARTATE AMNIOTRANSFERASE,AST 20.0 U/L (15-37); BILIRUBIN TOTAL 0.2 mg/dL (0.2-1.0); BLOOD UREA NITROGEN,BUN 23.0 mg/dL (7-18); CARBON DIOXIDE,CO2 23.0 mmol/L (21-32); CHLORIDE,CL 106.0 mmol/L (98-107); CREATININE 1.07 mg/dL (0.55-1.02); EST CRCL DRUG DOSING (CG) 63.89 mL/min; GLUCOSE RANDOM 195.0 mg/dL (70-99); POTASSIUM,K 3.7 mmol/L (3.5-5.1); PROTEIN TOTAL,TP 8.1 g/dL (6.4-8.2); SODIUM,NA 138.0 mmol/L (136-145)
[2025-05-03 01:56] LABS: A/G RATIO 0.56; ESTIMATED GFR 65.0 mL/min (>=60)
[2025-05-03 05:14] VITALS: BP 150/100; PULSE 79
== END 2025-05-03 02:39 | disposition home or self-care (01) ==
LOC: DL.ED 23:16
DX: J18.9 Pneumonia, unspecified organism (principal); E11.9 Type 2 diabetes mellitus without complications; Z88.8 Allergy status to other drugs, medicaments and biological substances; Z88.5 Allergy status to narcotic agent; Z88.1 Allergy status to other antibiotic agents; Z86.16 Personal history of COVID-19
CPT/HCPCS: 36415; 71045; 80053; 83605; 84145; 84484; 85025; 85379; 87040; 96360; 99284; 99285; J7030

== ENCOUNTER 2025-07-03 17:29 | Observation (INO) | payer MEDICAID ==
[2025-07-03 17:30] LABS: BASOPHILS PERCENT AUTO 0.2 % (0.0-1.0); EOSINOPHILS PERCENT AUTO 0.0 % (1.0-3.0); LYMPHOCYTES PERCENT AUTO 11.3 % (20.5-50.1); MONOCYTES PERCENT AUTO 6.3 % (2-8); NEUTROPHILS PERCENT AUTO 82.2 % (42.2-75.2); PLATELET COUNT,PLT 234 10^3/uL (150-450); RED BLOOD CELL COUNT 3.49 10^6/uL (4.2-5.4); WHITE BLOOD CELL COUNT,WBC 15.5 10^3/uL (5.0-10.0)
[2025-07-03] MEDS: Lactated Ringers 2,000 ML IV ONE (17:40)
[2025-07-03 18:05] LABS: ALANINE AMINOTRANSFERASE,ALT 14 U/L (14-59); ASPARTATE AMNIOTRANSFERASE,AST 11 U/L (15-37); BILIRUBIN TOTAL 0.5 mg/dL (0.2-1.0); BLOOD UREA NITROGEN,BUN 11 mg/dL (7-18); CARBON DIOXIDE,CO2 26 mmol/L (21-32); CHLORIDE,CL 100 mmol/L (98-107); CREATININE 0.79 mg/dL (0.55-1.02); GLUCOSE RANDOM 108 mg/dL (70-99); POTASSIUM,K 3.3 mmol/L (3.5-5.1); PROTEIN TOTAL,TP 7.7 g/dL (6.4-8.2); SODIUM,NA 135 mmol/L (136-145)
[2025-07-03 18:08] LABS: A/G RATIO 0.51; ESTIMATED GFR 93 mL/min (>=60)
[2025-07-03] MEDS: Levofloxacin/Dextrose 5%-Water 500 MG in Premix Bag 1 BAG IV ONE (18:21)
[2025-07-03 18:43] LABS: APPEARANCE,URINE CLEAR (CLEAR); GLUCOSE,URINE NEGATIVE (NEGATIVE); OCCULT BLOOD,URINE LARGE (NEGATIVE)
[2025-07-03] MEDS: Iopamidol 612 MG/ML 100 ML Bottle IVPUSH ONE (18:48)
[2025-07-03 19:08] LABS: SQUAMOUS EPITHELIAL CELLS,UR FEW /HPF (NOT SEEN)
[2025-07-03 21:01] LABS: LACTIC ACID 0.7 mmol/L (0.4-2.0)
[2025-07-03] MEDS ORDERED: 50% Dextrose in Water 50 ML Syringe IVPUSH PRN (22:26)
[2025-07-03 22:50] LABS: CHOLESTEROL HDL 40 mg/dL (40-59); CHOLESTEROL LDL CALCULATED 66 mg/dL (0-100); CHOLESTEROL TOTAL 126 mg/dL (0-199)
[2025-07-04] MEDS: fentaNYL 100 MCG/2 ML SDV IVPUSH ONE (05:55)
[2025-07-04] MEDS: Heparin Sodium 5,000 Units/ML Vial SUBCUT SCH (05:56)
[2025-07-04] MEDS: Ketorolac 30 MG/ML SDV IVPUSH ONE (05:56)
[2025-07-04 06:53] LABS: BASOPHILS PERCENT AUTO 0.1 % (0.0-1.0); EOSINOPHILS PERCENT AUTO 0.0 % (1.0-3.0); LYMPHOCYTES PERCENT AUTO 17.6 % (20.5-50.1); MONOCYTES PERCENT AUTO 8.5 % (2-8); NEUTROPHILS PERCENT AUTO 73.8 % (42.2-75.2); PLATELET COUNT,PLT 211 10^3/uL (150-450); RED BLOOD CELL COUNT 3.42 10^6/uL (4.2-5.4); WHITE BLOOD CELL COUNT,WBC 10.8 10^3/uL (5.0-10.0)
[2025-07-04 07:40] LABS: ALANINE AMINOTRANSFERASE,ALT 84.0 U/L (14-59); ASPARTATE AMNIOTRANSFERASE,AST 143.0 U/L (15-37); BILIRUBIN DIRECT 0.7 mg/dL (0.0-0.2); BILIRUBIN INDIRECT 0.6; BILIRUBIN TOTAL 1.3 mg/dL (0.2-1.0); BLOOD UREA NITROGEN,BUN 6.0 mg/dL (7-18); CARBON DIOXIDE,CO2 26.0 mmol/L (21-32); CHLORIDE,CL 101.0 mmol/L (98-107); CREATININE 0.7 mg/dL (0.55-1.02); EST CRCL DRUG DOSING (CG) 90.32 mL/min; GLUCOSE RANDOM 104.0 mg/dL (70-99); PHOSPHORUS 2.6 mg/dL (2.6-4.7); POTASSIUM,K 3.4 mmol/L (3.5-5.1); PROTEIN TOTAL,TP 7.2 g/dL (6.4-8.2); SODIUM,NA 134.0 mmol/L (136-145)
[2025-07-04 07:42] LABS: A/G RATIO 0.47; ESTIMATED GFR 108.0 mL/min (>=60)
[2025-07-04] MEDS: Magnesium Sulfate 2 GM/50 mL 2 GM in Premix Bag 1 BAG IV ONE (11:53)
[2025-07-04 12:02] LABS: ALANINE AMINOTRANSFERASE,ALT 74.0 U/L (14-59); ASPARTATE AMNIOTRANSFERASE,AST 93.0 U/L (15-37); BILIRUBIN DIRECT 0.4 mg/dL (0.0-0.2); BILIRUBIN INDIRECT 0.5; BILIRUBIN TOTAL 0.9 mg/dL (0.2-1.0); GAMMA GLUTAMYL TRANSFERASE,GGT 140.0 U/L (5-55); PROTEIN TOTAL,TP 6.6 g/dL (6.4-8.2)
[2025-07-04 12:03] LABS: A/G RATIO 0.47
[2025-07-04] MEDS: Ondansetron 4 MG/2 ML SDV IVPUSH PRN (18:14)
[2025-07-04] MEDS: Levofloxacin/Dextrose 5%-Water 750 MG in Premix Bag 1 BAG IV SCH (21:17)
[2025-07-05 06:48] LABS: BASOPHILS PERCENT AUTO 0.3 % (0.0-1.0); EOSINOPHILS PERCENT AUTO 0.0 % (1.0-3.0); LYMPHOCYTES PERCENT AUTO 25.8 % (20.5-50.1); MONOCYTES PERCENT AUTO 10.2 % (2-8); NEUTROPHILS PERCENT AUTO 63.7 % (42.2-75.2); PLATELET COUNT,PLT 230 10^3/uL (150-450); RED BLOOD CELL COUNT 3.21 10^6/uL (4.2-5.4); WHITE BLOOD CELL COUNT,WBC 7.4 10^3/uL (5.0-10.0)
[2025-07-05 06:59] LABS: BLOOD UREA NITROGEN,BUN 6.0 mg/dL (7-18); CARBON DIOXIDE,CO2 27.0 mmol/L (21-32); CHLORIDE,CL 101.0 mmol/L (98-107); CREATININE 0.7 mg/dL (0.55-1.02); EST CRCL DRUG DOSING (CG) 89.53 mL/min; GLUCOSE RANDOM 100.0 mg/dL (70-99); POTASSIUM,K 3.3 mmol/L (3.5-5.1); SODIUM,NA 136.0 mmol/L (136-145)
[2025-07-05 07:03] LABS: ESTIMATED GFR 108.0 mL/min (>=60)
[2025-07-05] MEDS: Potassium Chloride 20 MEQ in Premix Bag 1 BAG IV ONE (09:31)
[2025-07-05 12:43] LABS: IRON,FE 20.0 ug/dL (50-170); PERCENT FE SATURATION 11.6 % (20.0-50.0)
[2025-07-05 13:11] LABS: FOLIC ACID 15.0 ng/mL (8.6-58.9)
[2025-07-05] MEDS: Potassium Chloride 10 MEQ Tab.ER PO SCH (17:19)
[2025-07-06 06:52] LABS: BASOPHILS PERCENT AUTO 0.2 % (0.0-1.0); EOSINOPHILS PERCENT AUTO 0.0 % (1.0-3.0); LYMPHOCYTES PERCENT AUTO 36.7 % (20.5-50.1); MONOCYTES PERCENT AUTO 10.8 % (2-8); NEUTROPHILS PERCENT AUTO 52.3 % (42.2-75.2); PLATELET COUNT,PLT 268 10^3/uL (150-450); RED BLOOD CELL COUNT 3.47 10^6/uL (4.2-5.4); WHITE BLOOD CELL COUNT,WBC 5.4 10^3/uL (5.0-10.0)
[2025-07-06 07:12] LABS: ALANINE AMINOTRANSFERASE,ALT 34.0 U/L (14-59); ASPARTATE AMNIOTRANSFERASE,AST 14.0 U/L (15-37); BILIRUBIN DIRECT 0.1 mg/dL (0.0-0.2); BILIRUBIN INDIRECT 0.1; BILIRUBIN TOTAL 0.2 mg/dL (0.2-1.0); BLOOD UREA NITROGEN,BUN 9.0 mg/dL (7-18); CARBON DIOXIDE,CO2 27.0 mmol/L (21-32); CHLORIDE,CL 101.0 mmol/L (98-107); CREATININE 0.71 mg/dL (0.55-1.02); EST CRCL DRUG DOSING (CG) 87.49 mL/min; GLUCOSE RANDOM 159.0 mg/dL (70-99); POTASSIUM,K 4.0 mmol/L (3.5-5.1); PROTEIN TOTAL,TP 7.4 g/dL (6.4-8.2); SODIUM,NA 135.0 mmol/L (136-145)
[2025-07-06 07:13] LABS: A/G RATIO 0.45; ESTIMATED GFR 106.0 mL/min (>=60)
[2025-07-06 11:30] VITALS: BP 107/67; PULSE 76
[2025-07-07 12:42] LABS: HAV AB IGM Negative (Negative); HBC IGM Negative (Negative); HEP B SURG AG Negative (Negative); HEP C AB BY CIA High Pos (Negative); HEP C AB BY CIA INDEX >11.00 IV
[2025-07-08 17:47] LABS: HEP C QNT BY NAAT (IU/mL) Not Detected; HEP C QNT BY NAAT (log IU/mL) Not Detected log IU/mL; HEP C QNT BY NAAT INTERP Not Detected (Not Detected)
== END 2025-07-06 12:00 | disposition home or self-care (01) ==
LOC: DL.ED 17:29 → DL.MS 20:41 → EEVIPCON 20:41 → DL.MS 22:10
PROVIDERS: ADMIT Internal Medicine; ATTEND Internal Medicine
DX: A41.9 Sepsis, unspecified organism (principal); N10 Acute pyelonephritis; E11.9 Type 2 diabetes mellitus without complications; Z88.6 Allergy status to analgesic agent; Z79.899 Other long term (current) drug therapy
CPT/HCPCS: 36415; 74177; 80048; 80053; 80061; 80074; 80076; 80143; 81001; 81025; 82272; 82607; 82746; 82947; 82977; 83036; 83540; 83550; 83605; 83690; 83735; 84100; 85025; 87040; A9270; J0696; J1644; J1815; J1885; J1956; J2270; J2405; J3010; J3475; J3480; J7030; J7120; Q9967; 87522; 99223; 99233; 99239; 99284